=== PATIENT | female | born 1975 | race Caucasian/White ===

== ENCOUNTER 2017-08-05 11:15 | Emergency (ER) | payer BC, OTHER ==
[~2017-08-05] VITALS: Ht 162.6 cm; Wt 107.5 kg
[2017-08-05 11:20] VITALS: Ht 162.6 cm; Wt 107.5 kg
--- NOTE | 2017-08-05 12:12 | DIAGNOSTIC IMAGING REPORT ---
CHEST ONE VIEW PORTABLE HISTORY: 42 years-old Female dizziness acute dizziness COMPARISON: None available TECHNIQUE: Portable AP view of the chest FINDINGS: Cardiomediastinal and hilar silhouettes are within normal limits. No pneumothorax, pleural effusion, focal airspace consolidation or overt pulmonary edema. Bones of the chest appear grossly intact. IMPRESSION: No acute cardiopulmonary process. The above report was generated using voice recognition software. It may contain grammatical, syntax or spelling errors. Electronically signed by: Adin Brown M.D. 08/05/2017 12:10 PM Dictated Date/Time: 08/05/2017 12:10 PM
--- NOTE | 2017-08-05 12:32 | EMERGENCY ROOM VISIT NOTE ---
History First contact with patient: 11:24 Chief Complaint: DIZZY Stated Complaint: DIZZY Nursing Triage Summary: Triage Notes: Patient presents ambulatory to triage with spouse with c/o dizziness and tightness in her chest States yesterday while eating lunch with friends, she had a severe episode of dizziness and notes that her ear popped so she thought that it was fluid related Chest tightness began last night and radiates to left upper back Patient states she has had left upper back pain for the last several weeks History of Present Illness The patient is a 42 year old female who presents to the Emergency Room with complaints of dizziness. The patient reports that yesterday, she was eating lunch with her friends when she had a sudden onset of dizziness. She states that it felt like the room was spinning and the patient reports that she feels that if she was standing up, she would have fallen over. The patient reports she developed some pressure in her left ear, which then popped. Her symptoms then resolved. The dizziness lasted for less than 1 minute. The patient reports that since this morning, she has had some tightness in the left side of her chest, intermittent lightheadedness and tingling in both of her arms. She does report she has had some pressure and a pulling sensation in the left upper back for several weeks. She denies any chest pain, describing the sensation as a tightness and pressure. The patient reports some pressure in the back of her head. She denies palpitations, syncope, headache, neck pain, blurred vision, slurred speech, numbness, weakness, recent illness, fevers or shortness of breath. The patient has a history of gastric sleeve surgery. She was diabetic prior to the surgery, but this has resolved. She does have a history of hypertension and takes 12.5 mg or 5 times daily. She did take this medication this morning. She denies any cardiac history or family history of cardiac disease. She does not smoke. Denies hormone replacement, recent travel or history of blood clots. Review of Systems A complete 10 point review of systems was reviewed with the patient with pertinent positives and negatives as per history of present illness. All else were negative. Social History Smoking Status: Never Smoker Current/Historical Medications Scheduled Cetirizine (Zyrtec), 10 MG PO DAILY Fish Oil (Kendall-3), 1 CAP PO DAILY Fluoxetine (Prozac), 20 MG PO DAILY Hydrochlorothiazide (Hydrochlorothiazide), 12.5 MG PO DAILY Multivitamin (Multivitamin), 1 TAB PO DAILY Omeprazole (Prilosec), 1 CAP PO DAILY Physical Exam Vital Signs Date Time Temp Pulse Resp B/P (MAP) Pulse Ox O2 Delivery O2 Flow Rate FiO2 08/05/17 14:01 37.1 66 18 135/90 98 08/05/17 13:55 66 18 135/90 98 Room Air 08/05/17 13:31 128/91 08/05/17 13:15 67 18 98 Room Air 08/05/17 13:00 138/94 08/05/17 13:00 71 08/05/17 12:59 137/86 08/05/17 12:58 66 16 137/86 99 Room Air 08/05/17 12:58 147/92 08/05/17 12:56 72 16 131/85 99 Room Air 76 140/95 75 147/92 08/05/17 11:20 37.1 83 16 172/119 98 Room Air Physical Exam VITALS: Vitals are noted on the nurse's note and reviewed by myself. Vital signs stable. GENERAL: This is a 42-year-old female, in no acute distress, nondiaphoretic, well-developed well-nourished. SKIN: The skin was without rashes. HEAD: Normocephalic atraumatic. EARS: External auditory canals clear, tympanic membranes pearly chávez without erythema or effusion bilaterally. EYES: Pupils equal round and reactive to light and accommodation. Conjunctivae without injection, sclerae without icterus. Extraocular movements intact. MOUTH: Mucous membranes moist. Tonsils are not enlarged. Pharynx without erythema or exudate. NECK: Supple without nuchal rigidity. No lymphadenopathy. HEART: Regular rate and rhythm without murmurs gallops or rubs. LUNGS: Clear to auscultation bilaterally without wheezes, rales or rhonchi. MUSCULOSKELETAL: Strength 5/5 throughout. NEURO: Patient was alert and oriented to person place and time. Normal sensation to light and sharp touch. No focal neurological deficits. Normal finger to nose testing. Negative Romberg and pronator drift. Medical Decision & Procedures ER Provider Diagnostic Interpretation: HEAD WITHOUT CONTRAST (CT) FINDINGS: No acute intracranial hemorrhage, midline shift, intracranial mass, hydrocephalus, territorial ischemia or abnormal extra-axial collection. 1.1 cm round calcification is noted along the inner table of the skull adjacent to the right frontal lobe near the vertex, image 25 series 3. The calvarium is intact. The paranasal sinuses, mastoid air cells, and middle ear cavities are clear. IMPRESSION: No acute intracranial abnormality. CHEST ONE VIEW PORTABLE FINDINGS: Cardiomediastinal and hilar silhouettes are within normal limits. No pneumothorax, pleural effusion, focal airspace consolidation or overt pulmonary edema. Bones of the chest appear grossly intact. IMPRESSION: No acute cardiopulmonary process. Laboratory Results 08/05/17 12:15 Red Blood Count 4.87, Mean Corpuscular Volume 80.3, Mean Corpuscular Hemoglobin 27.5, Mean Corpuscular Hemoglobin Concent 34.3, Mean Platelet Volume 9.5, Neutrophils (%) (Auto) 66.1, Lymphocytes (%) (Auto) 27.3, Monocytes (%) (Auto) 5.4, Eosinophils (%) (Auto) 0.7, Basophils (%) (Auto) 0.4, Neutrophils # (Auto) 4.80, Lymphocytes # (Auto) 1.98, Monocytes # (Auto) 0.39, Eosinophils # (Auto) 0.05, Basophils # (Auto) 0.03 08/05/17 12:15 Test 08/05/17 12:15 08/05/17 12:59 White Blood Count 7.26 K/uL (4.8-10.8) Red Blood Count 4.87 M/uL (4.2-5.4) Hemoglobin 13.4 g/dL (12.0-16.0) Hematocrit 39.1 % (37-47) Mean Corpuscular Volume 80.3 fL (80-100) Mean Corpuscular Hemoglobin 27.5 pg (25-34) Mean Corpuscular Hemoglobin Concent 34.3 g/dl (32-36) Platelet Count 242 K/uL (130-400) Mean Platelet Volume 9.5 fL (7.4-10.4) Neutrophils (%) (Auto) 66.1 % Lymphocytes (%) (Auto) 27.3 % Monocytes (%) (Auto) 5.4 % Eosinophils (%) (Auto) 0.7 % Basophils (%) (Auto) 0.4 % Neutrophils # (Auto) 4.80 K/uL (1.4-6.5) Lymphocytes # (Auto) 1.98 K/uL (1.2-3.4) Monocytes # (Auto) 0.39 K/uL (0.11-0.59) Eosinophils # (Auto) 0.05 K/uL (0-0.5) Basophils # (Auto) 0.03 K/uL (0-0.2) RDW Standard Deviation 39.0 fL (36.4-46.3) RDW Coefficient of Variation 13.5 % (11.5-14.5) Immature Granulocyte % (Auto) 0.1 % Immature Granulocyte # (Auto) 0.01 K/uL (0.00-0.02) Anion Gap 8.0 mmol/L (3-11) Est Creatinine Clear Calc Drug Dose 152.8 ml/min Estimated GFR () 132.7 Estimated GFR (Non- 114.5 BUN/Creatinine Ratio 12.1 (10-20) Calcium Level 9.5 mg/dl (8.5-10.1) Magnesium Level 2.2 mg/dl (1.8-2.4) Total Bilirubin 0.4 mg/dl (0.2-1) Aspartate Amino Transf (AST/SGOT) 14 U/L (15-37) Alanine Aminotransferase (ALT/SGPT) 17 U/L (12-78) Alkaline Phosphatase 61 U/L (45-117) Troponin I < 0.015 ng/ml (0-0.045) Total Protein 7.7 gm/dl (6.4-8.2) Albumin 4.0 gm/dl (3.4-5.0) Globulin 3.7 gm/dl (2.5-4.0) Albumin/Globulin Ratio 1.1 (0.9-2) Thyroid Stimulating Hormone (TSH) 1.100 uIu/ml (0.300-4.500) Urine Color YELLOW Urine Appearance CLEAR (CLEAR) Urine pH 8.0 (4.5-7.5) Urine Specific [place] 1.011 (1.000-1.030) Urine Protein NEG (NEG) Urine Glucose (UA) NEG (NEG) Urine Ketones NEG (NEG) Urine Occult Blood NEG (NEG) Urine Nitrite NEG (NEG) Urine Bilirubin NEG (NEG) Urine Urobilinogen NEG (NEG) Urine Leukocyte Esterase NEG (NEG) ECG Rate (beats per minute): 74 Rhythm: normal sinus Findings: RBBB Comparison ECG Date: no prior available Medical Decision Differential diagnosis includes CVA, TIA, BPPV, anxiety, cardiac, thyroid disorder, electrolyte abnormality, among others. The patient is a 42-year-old female who presents today complaining of an episode of dizziness which occurred one day ago. The dizziness has resolved at this time. The patient now has some intermittent lightheadedness and chest tightness. She also has tingling of bilateral upper extremities. Patient's neurological exam is completely normal. Labs revealed no leukocytosis, anemia or concerning electrolyte abnormalities. Patient is in a euthyroid state. Urinalysis was not suggestive of infection. Urine was negative. EKG was interpreted by myself and shows a right bundle-branch block. There is no previous EKG for comparison. CT of the head was unremarkable. Chest x-ray was unremarkable. Patient was fairly hypertensive on initial presentation, however this normalized on recheck. I feel that the patient's current symptoms are likely secondary to anxiety regarding the episode of dizziness she had yesterday. She did admit that she was very nervous about these symptoms and was very relieved to know that her tests were normal. The dizziness may have been due to an inner ear issue, but this has resolved at this time and should not require treatment. The patient was advised of close follow-up with her PCP and return here if the symptoms worsen or if her dizziness returns. The patient's case was reviewed with Dr. Lagos, ED attending physician, who agreed with my assessment and treatment plan. Based on the patient's presentation and work up, I feel the patient is stable for outpatient treatment. The patient was educated to return to the emergency department for any worsening of their current condition or new/concerning symptoms. She will follow up with her PCP. Medication Reconcilliation Current Medication List: was personally reviewed by me Blood Pressure Screening Patient's blood pressure: Normal blood pressure Impression Primary Impression: Dizziness Departure Information Dispostion Home / Self-Care Condition GOOD Referrals Kimberlyn Garcia M.D. (PCP) Forms HOME CARE DOCUMENTATION FORM, IMPORTANT VISIT INFORMATION Patient Instructions My [facility] Additional Instructions Rest and plenty of fluids.. For pain control, you can use the following [id number] medicines (if >12 yo): - Regular strength (325mg/tab) Tylenol (acetaminophen) 2 tabs every 4-6 hours as needed. Do not exceed 12 tablets in a 24 hour period. Avoid taking more than 4 grams (4000 mg) of Tylenol per day. This includes any other sources of acetaminophen you may take on a regular basis. - Regular strength (200 mg/tab) Advil (ibuprofen) 1-2 tabs every 4-6 hours as needed. Do not exceed a dose of 3200 mg per day. You should schedule a follow-up appointment with your Primary Care Provider within 48 hours for further evaluation from today's Emergency Department visit. Return to the Emergency Department if your current symptoms worsen despite treatment course outlined above, or if you develop any of the following symptoms : worsening chest pain, associated jaw/arm pain, nausea, dizziness, shortness of breath, bloody cough, or fainting.
--- NOTE | 2017-08-05 12:32 | DIAGNOSTIC IMAGING REPORT ---
HEAD WITHOUT CONTRAST (CT) CLINICAL HISTORY: 42 years-old Female with dizziness, sudden onset. Acute dizziness TECHNIQUE: Multiple axial CT images of the head were obtained without contrast. A dose lowering technique was utilized adhering to the principles of ALARA. CT DOSE: 537.48 mGy.cm COMPARISON: None. FINDINGS: No acute intracranial hemorrhage, midline shift, intracranial mass, hydrocephalus, territorial ischemia or abnormal extra-axial collection. 1.1 cm round calcification is noted along the inner table of the skull adjacent to the right frontal lobe near the vertex, image 25 series 3. The calvarium is intact. The paranasal sinuses, mastoid air cells, and middle ear cavities are clear. IMPRESSION: No acute intracranial abnormality. The above report was generated using voice recognition software. It may contain grammatical, syntax or spelling errors. Electronically signed by: Adin Brown M.D. 08/05/2017 12:30 PM Dictated Date/Time: 08/05/2017 12:28 PM
[2017-08-05 12:36] LABS: BASO % 0.4 %; BASO ABS # 0.03 K/uL (0-0.2); COMPLETE YES; EOS % 0.7 %; HEMATOCRIT 39.1 % (37-47); IG% 0.1 %; LYMPH % 27.3 %; LYMPH ABS # 1.98 K/uL (1.2-3.4); MEAN CELL VOLUME 80.3 fL (80-100); MEAN CORPUSCULAR HEMOGLOBIN 27.5 pg (25-34); MEAN CORPUSCULAR HGB CONC 34.3 g/dl (32-36); MEAN PLATELET VOLUME 9.5 fL (7.4-10.4); MONO % 5.4 %; NEUT % 66.1 %; PLATELET COUNT 242 K/uL (130-400); RED BLOOD COUNT 4.87 M/uL (4.2-5.4); WHITE BLOOD COUNT 7.26 K/uL (4.8-10.8)
[2017-08-05 12:53] LABS: BLOOD UREA NITROGEN 7 mg/dl (7-18); BUN/CREATININE RATIO 12.1 (10-20); CALCIUM 9.5 mg/dl (8.5-10.1); CARBON DIOXIDE 26 mmol/L (21-32); CHLORIDE 103 mmol/L (98-107); CREATININE 0.58 mg/dl (0.60-1.20); GLUCOSE 159 mg/dl (70-99); MAGNESIUM 2.2 mg/dl (1.8-2.4); POTASSIUM 3.6 mmol/L (3.5-5.1); SODIUM 137 mmol/L (136-145)
[2017-08-05 13:03] LABS: ALB/GLOB RATIO 1.1 (0.9-2); ALKALINE PHOSPHATASE 61 U/L (45-117); ALT/SGPT 17 U/L (12-78); AST/SGOT 14 U/L (15-37)
[2017-08-05 13:18] LABS: URINE APPEARANCE CLEAR (CLEAR); URINE BILIRUBIN NEG (NEG); URINE COLOR YELLOW; URINE NITRITE NEG (NEG); URINE SPECIFIC GRAVITY 1.011 (1.000-1.030); UROBILINOGEN NEG (NEG); ZZUR CULT IF INDIC CLEAN CATCH NO
[2017-08-05] MEDS ORDERED: CETI10TA84 PO (13:20)
[2017-08-05] MEDS ORDERED: FLUO20CA35 PO (13:20)
[2017-08-05] MEDS ORDERED: HYDR12.55 PO (13:20)
[2017-08-05] MEDS ORDERED: OMEG10007 PO (13:20)
[2017-08-05] MEDS ORDERED: PRLSR20 PO (13:20)
[2017-08-05] MEDS ORDERED: MULT-506 PO (13:20)
[2017-08-05 13:25] LABS: MANUAL MICROSCOPIC REQUIRED? NO; REVIEW REQ? NO
[2017-08-05 14:01] VITALS: BP 135/90; PULSE 66; TEMP 37.1; O2SAT 98
== END 2017-08-05 14:03 | disposition home or self-care (01) ==
LOC: C.EDB 11:18 → C.EDA 14:03
DX: R42 Dizziness and giddiness (principal); I45.10 Unspecified right bundle-branch block; Z79.899 Other long term (current) drug therapy

== ENCOUNTER → 2017-09-02 | Outpatient (CLI) | payer OTHER ==
[~2017-09-02] MED LIST: CETI10TA84 PO; FLUO20CA35 PO; HYDR12.55 PO; MULT-506 PO; OMEG10007 PO; PRLSR20 PO
--- NOTE | 2017-09-02 14:42 | DIAGNOSTIC IMAGING REPORT ---
C-SPINE ROUTINE 4 OR 5 VIEWS CLINICAL HISTORY: ANESTHESIA OF SKIN COMPARISON STUDY: No previous studies for comparison. FINDINGS: Alignment of the cervical spine is anatomic. Vertebral body heights are maintained. There is no fracture or osseous lesion. There is minimal disc space narrowing at C5-C6. There is minimal multilevel bony neural foraminal narrowing. IMPRESSION: 1. No cervical spine fracture or subluxation. 2. Mild multilevel degenerative disc disease and facet arthrosis. Electronically signed by: Jose Lowery M.D. 09/02/2017 2:41 PM Dictated Date/Time: 09/02/2017 2:40 PM
== END | disposition home or self-care (01) ==
LOC: C.RAD1850 14:06
PROVIDERS: ATTEND Family Medicine
DX: R20.0 Anesthesia of skin (principal)

== ENCOUNTER → 2017-12-15 | Outpatient (CLI) | payer OTHER ==
--- NOTE | 2017-12-15 06:54 | DIAGNOSTIC IMAGING REPORT ---
FUSION CT SINUSES W/O CLINICAL HISTORY: J32.9 Chronic sinusitisPATIENT HAS HAD 3 COURSES OF ANTIBIOTICS COMPARISON STUDY: No previous studies for comparison. FINDINGS: There is an 11 mm right frontal canal stenosis versus calcified meningioma. There is a 19 mm right maxilla sinus retention cyst. There is minimal left maxilla sinus mucosal thickening. The mastoid air cells are clear. Middle ear cavities are well aerated. The sphenoid ethmoid and frontal sinuses are clear. The ostiomeatal units are patent bilaterally. The right ethmoid notches is protected. The left ethmoid notches are unprotected. The right olfactory groove measures 6 mm in depth. The left olfactory groove measures 8 mm in depth. The frontoethmoidal recesses are patent IMPRESSION: 1. No evidence of acute sinusitis 2. Minimal left maxillary sinus mucosal thickening. Right maxilla sinus retention cyst 3. The ostiomeatal units are patent bilaterally Electronically signed by: Selvin Haddad M.D. 12/15/2017 6:53 AM Dictated Date/Time: 12/15/2017 6:49 AM
== END | disposition home or self-care (01) ==
LOC: C.CTS 06:33
PROVIDERS: ATTEND Physician Assistant
DX: J32.9 Chronic sinusitis, unspecified (principal)

== ENCOUNTER → 2018-03-27 | Outpatient (CLI) | payer OTHER ==
--- NOTE | 2018-03-30 15:10 | MAMMOGRAPHY REPORT ---
BILATERAL DIGITAL SCREENING MAMMOGRAM TOMOSYNTHESIS WITH CAD: 03/27/2018 CLINICAL HISTORY: Routine screening. Patient has no complaints. TECHNIQUE: The study was acquired using full field digital technology and interpreted from soft copy. Breast tomosynthesis in addition to standard 2D mammography was performed. Current study was also ev aluated with a Computer Aided Detection (CAD) system. COMPARISON: Comparison is made to exam dated: 03/29/2016 mammogram - [facility] [address]. Al so outside prior mammograms dated 05/22/2011. BREAST COMPOSITION: There are scattered areas of fibroglandular density in both breasts. FINDINGS: No suspicious masses, calcifications, or areas of architectural distortion are noted in either breast . There has been no significant interval change compared to prior exams. IMPRESSION: ACR BI-RADS CATEGORY 1: NEGATIVE There is no mammographic evidence of malignancy. A 1 year screening mammogram is recommended.( [id number]) The patient will receive written notification of the results. Some breast cancers are not detected with mammography. A negative mammographic report should not marge y biopsy if a clinically suggestive mass is present. Fadia Kwon M.D. ah/:03/27/2018 15:01:01 [address] Attendant: RT Wilfrid(R)(M), [facility] [address] letter sent: Normal 1/2 BI-RADS Code: ACR BI-RADS Category 1: Negative
== END | disposition home or self-care (01) ==
LOC: C.MAMM 13:15
PROVIDERS: ATTEND Family Medicine
DX: Z12.31 Encounter for screening mammogram for malignant neoplasm of breast (principal)

== ENCOUNTER 2024-09-11 20:06 | Inpatient (IN) ==
--- OUTSIDE RECORDS SUMMARY | 2024-09-11 20:12 | External Medical Summary | Continuity of Care Document ---
Author Name Unknown Organization [facility] [id number] [place] [phone] Care Team Providers Care Bolt Maker Name Role Phone Sumeet Daniels Primary Care Physician [phone] Encounter [facility] [id number] Date(s): 06/15/24 - 06/15/24 [facility] [address] [facility] [address] [place] [address] [phone] Encounter Diagnosis DM (diabetes mellitus), type 2(Discharge Diagnosis) - 06/15/24 Body mass index [BMI] 34.0-34.9, adult(Discharge Diagnosis) - 06/15/24 Anxiety(Discharge Diagnosis) - 06/15/24 Hyperlipidemia(Discharge Diagnosis) - 06/15/24 Multiple sclerosis(Discharge Diagnosis) - 06/15/24 Discharge Disposition: Home or Self Care Attending Physician: MD Daniels Christopher Allergies, Adverse Reactions, Alerts Substance Criticality Severity Reaction Reaction Severity Status Copaxone Unable to assess criticality Severe Skin Necrosis Active Assessment and Plan Extracted from: Title:DM f/u Author:DO Thorne Sophia El izabeth Date:06/15/24 1.DM (diabetes mellitus), type 2 - chronic, not at goal - goal: A1c <7 with least amt of meds possible - will increase metformin to 500 mg in AM, 1000mg in PM; goal to d/c glipizide when able - continue ozempic 2 mgweekly, glipizide 5 mg daily - recheck A1c in 3 mths along withCMP, UCAR, and lipid panel - f/u in 3 mths 2.Anxiety - chronic, at goal - goal: reduce symptoms - continue prozac 60mg until at least Sep 2024 3.Multiple sclerosis - chronic, not at goal - goal: monitoring, prevent progression - pt continues to follow with neuro at [facility] - pt will have brain MRI in Aug; if new active lesion, will have to change her current regimen - encouraged continued f/u with neuro Immunizations Given and Recorded Vaccine Date Status Refusal Reason SARS COVID Vaccine Unspecified 05/23/24 Recorded SARS COVID Vaccine Unspecified 05/23/23 Recorded influenza virus vaccine, inactivated 05/23/24 Prince rded influenza virus vaccine, inactivated 05/23/23 Prince rded influenza virus vaccine, inactivated 05/14/22 Prince rded influenza virus vaccine, inactivated 05/11/20 Prince rded influenza virus vaccine, inactivated 05/25/19 Prince rded influenza virus vaccine, inactivated 05/25/18 Prince rded tetanus/diphtheria/pertuss, acel (Tdap) 12/18/22 G iven tetanus/diphtheria/pertuss, acel (Tdap) 11/04/10 R ecorded SARS-CoV-2 mRNA (Pfizer 12+) bivalent 05/24/22 Rec orded pneumococcal 20-valent conjugate vaccine 05/16/22 Given SARS-CoV-2 (COVID-19) mRNA BNT-162b2 vax 1 06/01/21 Recorded SARS-CoV-2 (COVID-19) mRNA BNT-162b2 vax 10/18/20 Recorded SARS-CoV-2 (COVID-19) mRNA BNT-162b2 vax 09/27/20 Recorded 1Result Comment: Booster; Medications atorvastatin 40 mg oral tablet Start: 02/24/24 6:57:00 PM EDT, See Instructions, Disp# 90 tab, Refills: 3, TAKE 1 TABLET AT BEDTIME,Note to Pharmacy: please use policy #[id number] per pt request, Pharmacy: [facility] Start Date: 02/24/24 Status: Ordered Aubagio 14 mg oral tablet Start: 05/22/21 1:55:00 PM EDT, 1 tab, PO, Daily Start Date: 05/22/21 Status: Ordered baclofen 20 mg oral tablet TAKE 1 TABLET BY MOUTH EVERY 12 HOURS Start Date: 09/27/20 Status: Ordered Fiber Tabs Start: 04/20/24 7:58:00 AM EDT, 2 tab, qhs, Fiber ONE Start Date: 04/20/24 Status: Ordered FLUoxetine 20 mg oral capsule Start: 04/01/24 10:34:00 AM EDT, 1 cap, PO, Daily, Disp# 90 cap, Refills: 3, Take with 40mg capsule, Pharmacy: [facility]/pharmacy #[id number] Start Date: 04/01/24 Status: Ordered FLUoxetine 40 mg oral capsule Start: 06/09/24 9:52:00 AM EDT, See Instructions, Disp# 90 cap, Refills: 3, TAKE 1 CAPSULE DAILY, Note to Pharmacy: please use policy #[id number] per pt request, Pharmacy: [facility] Start Date: 06/09/24 Status: Ordered gabapentin 100 mg oral capsule Start: 11/22/21 7:48:00 AM EDT, 1 cap, PO, bid Start Date: 11/22/21 Status: Ordered GlipiZIDE XL 5 mg oral tablet, extended release Start: 06/09/24 9:52:00 AM EDT, 1 tab, PO, Daily, Disp# 90 tab, Refills: 3, Note to Pharmacy: please cancel IR script, Pharmacy: [facility] Start Date: 06/09/24 Stop Date: 06/04/25 Status: Ordered hydroCHLOROthiazide 25 mg oral tablet Start: 02/24/24 6:57:00 PM EDT, See Instructions, Disp# 90 tab, Refills: 3, TAKE 1 TABLET DAILY, Noteto Pharmacy: please use policy #[id number] per pt request, Pharmacy: [facility] Start Date: 02/24/24 Status: Ordered losartan 25 mg oral tablet Start: 09/18/23 9:53:00 PM EST, See Instructions, Disp# 45 tab, Refills: 3, TAKE 1/2 TABLET (=12.5MG) DAILY, Note to Pharmacy: please use policy #[id number] per pt request, Pharmacy: [facility]/pharmacy#[id number] Start Date: 09/18/23 Status: Ordered metFORMIN 1000 mg oral tablet Start: 06/15/24 9:02:00 AM EDT, 1 tab, PO, qPM, Disp# 30 tab, Refills: 3, Take 1 tablet in the evenings, Pharmacy: [facility]/pharmacy #[id number] Start Date: 06/15/24 Status: Ordered metFORMIN 500 mg oral tablet Start: 06/09/24 9:52:00 AM EDT, 1 tab, PO, bid, Disp# 180 tab, Refills: 3, Pharmacy: [facility] Start Date: 06/09/24 Status: Ordered multivitamin Start: 12/15/18 7:49:00 AM EDT, 1 tab, PO, Daily Start Date: 12/15/18 Status: Ordered nortriptyline 25 mg oral capsule TAKE 1 CAPSULE BY MOUTH EVERYDAY AT BEDTIME Start Date: 02/21/22 Status: Ordered omeprazole 20 mg oral delayed release capsule Start: 02/24/24 6:57:00 PM EDT, See Instructions, Disp# 90 cap, Refills: 3, TAKE 1 CAPSULE DAILY, Note to Pharmacy: please use policy #[id number] per pt request, Pharmacy: [facility] Start Date: 02/24/24 Status: Ordered One Touch Delica Plus (33G) Lancets Start: 02/16/24 1:29:00 PM EDT, See Instructions, Disp# 100 each, check blood glucose 3x per day andas needed for concerns of hypo or hyperglycemia, Pharmacy: [facility]/pharmacy #[id number] Start Date: 02/16/24 Status: Ordered One Touch Verio Flex Glucose Monitor Start: 02/16/24 1:29:00 PM EDT, See Instructions, Disp# 1 each, Use daily for blood sugar monitoring, Note to Pharmacy: Dispense as written, Pharmacy: [facility]/pharmacy #[id number] Start Date: 02/16/24 Status: Ordered One Touch Verio Test Strips Start: 06/15/24 2:00:00 PM EDT, See Instructions, Disp# 100 each, Refills: 3, check blood glucose 3x per day and as needed for concerns of hypo or hyperglycemia, Pharmacy: [facility]/pharmacy #[id number] Start Date: 06/15/24 Status: Ordered Ozempic (2 mg dose) 8 mg/3 mL subQ pen Start: 06/09/24 9:52:00 AM EDT, 2 mg =, subQ, q7days, Disp# 3 mL, Refills: 5, Note to Pharmacy: increase from 1 mg, Pharmacy: [facility] Start Date: 06/09/24 Status: Ordered Vitamin D3 Start: 04/14/19 3:47:00 PM EDT, 2,000 Int_Unit =, Daily, two tabs daily Start Date: 04/14/19 Status: Ordered Zofran ODT 4 mg oral tablet, disintegrating Start: 05/20/23 12:53:00 PM EDT, 1 tab, PO, q8h, Disp# 20 tab, Refills: 0, PRN: as needed for nausea/vomiting, Pharmacy: [facility]/pharmacy #[id number] Start Date: 05/20/23 Status: Ordered ZyrTEC Start: 03/05/16 2:09:00 PM EDT, 10 mg =, PO, Daily Start Date: 03/05/16 Status: Ordered Mental Status 06/15/24 Barriers to Learning one year None evide nt Mandatory Health Literacy Documentation Yes Health Literacy Communication Barriers N ever Primary Language Tajik Problem List Condition Confirmation Course Effective Dates Status H ealth Status Informant Anxiety Confirmed Active Carpal tunnel syndrome Confirmed Active Occipital neuralgia Confirmed Active GERD (gastroesophageal reflux disease) Confirmed Active Glaucoma Confirmed Active Hyperlipidemia Confirmed Active Hyperlipidemia Confirmed Active Hypertension Confirmed Active Urinary frequency 1 Confirmed Active Migraine Confirmed Active Multiple sclerosis Confirmed Active Myofascial neck pain Confirmed Active Wrist pain, right Confirmed Active Plantar fasciitis, left Confirmed Active Sleep apnea 2 Confirmed Active Tear of medial meniscus of left knee Confirmed Active DM (diabetes mellitus), type 2 Confirmed Active 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, had to be on cpap but not after weight loss from gastric sleeve surgery Diagnosis Diagnosis Type Effective Dates Health Status Clinical Service Informant DM (diabetes mellitus), type 2 Discharge Diagnosis 06/15/24 Non-Specified Body mass index [BMI] 34.0-34.9, adult Discharge Diagnosis 06/15/24 Non-Specified Anxiety Discharge Diagnosis 06/15/24 Non-Specified Hyperlipidemia Discharge Diagnosis 06/15/24 Non-Specified Multiple sclerosis Discharge Diagnosis 06/15/24 Non-Specified Procedures Procedure Date Related Diagnosis Body Site Status Shave biopsy and cauterization of skin 05/18/24 Completed Hysterectomy 12/2023 Completed Colonoscopy 1 09/11/22 Completed Ultrasound scan of pelvis 2 07/12/22 Completed Shave biopsy and cauterization of skin 04/23/22 Completed Diagnostic mammogram 3 03/18/22 Co mpleted X-ray of right knee 4 11/22/21 Com pleted Mammogram 5 03/08/21 Completed MRA head 6 03/06/21 Completed Mammogram 7 08/09/20 Completed Mammogram 8 03/08/20 Completed Biopsy of R breast 9 02/16/20 Comp leted Diagnostic mammogram 10 02/15/[address] of chest w/o contrast 11 06/01/19 Completed Spinal tap 05/2019 Completed Mammogram 12 04/20/19 Completed CXR - Chest X-ray 13 12/11/18 Comp leted MRI of brain with and withou t contrast 14 12/11/18 Completed MRI of cervical spine with & without 15 12/11/18 Completed Diabetic retinal eye exam 16 09/10/18 Completed Mammogram 17 03/27/[address] of sinuses 18 12/15/17 Complete d Cervical spine X-ray 19 09/02/17 C ompleted Chest X-ray 20 08/05/[address] of head 21 08/05/17 Completed Electrodesiccation with curettage 22 03/25/17 Completed MRI of left knee 23 06/25/16 Compl eted Mammogram 24 03/29/16 Completed LAP SLEEVE GASTRECTOMY 2011 Co mpleted Ablation 2010 Completed section 2010 Complete d Tubal ligation 2010 Completed Laser surgery 2005 Complete d section 2002 Complete d Cholecystectomy 2002 Completed Colonoscopy 1995 Completed Ablation Completed delivery Comp leted gall bladder Completed Gastric 30 Completed Kidney stone 31 Completed Tongue Completed Tonsillectomy Completed 1COLO to TI normal. repeat colo 10 years. 2impression: 1. Mildenlarged and heterogeneous uterus. A 3.8cm slightly enchogenic mass lesion in the anterior fundal region is pathologically indeterminate but typical for a fribroid. This abuts the endometrium. 2. The region is normal in thickness measuring up to 0.5cm 3. The ovaries are normal as visualized. No adhexal lesion is seen 3ACR BI-RADS CATEGORY 2: BENIGN, ULTRASOUND ACR BI-RADS CATEGORY 2: BENIGN 1. Stable sonographic size and visual appearance of a benign-appearing 8.6 mm mass in the 6:00 to 7:00 left breast, 3 cm from the nipple, that is unchanged dating back to at least February 2020, therefore considered benign given long-term stability. No further close sonographic follow-up is needed at this time. 2. Also stable bilateral mammograms, without mammographic evidence of malignancy. 3. Recommend return to routine screening mammogram schedule, next due February 2023. 41. No fracture or dislocation within the right knee or right lower leg 2. Mild tricompartmental osteoarthritis within the right knee 3. Trace right knee effusion 5IMPRESSION: ACR-BI-RADS CATEGORY 3: PROBABLY BENIGN, ULTRASOUND ACR-BI-RADS CATEGORY 3: PROBABLY BENIGN Hypoechoic circumscribed benign-appearing 8 mm mass in the left 7:00 breast is stable dating back to the February 2020 ultrasound exam and is probably benign and may represent a fibroadenoma. Recommend bilateral diagnostic tomosynthesis mammograms and repeat targeted ultrasound of the left breast in 12months to confirm 2 years of stability of the left breast mass and for routine mammography of the right breast. 6Impression: 1. Stable white matter lesions in the brain without new lesions. 2. Stable possible lesions in the thoracic spinal cord at the T9 level, otherwise no definte cord lesions. 7ACR RADS CAT 3 Probably benign Stable visual appearance and generally stable sonographic size of a benign appearing parallel cucumscribed hypoechoic soild appearing mass in the 7:00 left breast on targeted US. Another 6 month fup left breast US is recommended to ensure longer stability. Annual bilateral mammography will aslo be due at that time. 8Impression: ACR-BI-RADS CATEGORY 3: Probably benign, ultrasound ACR BI- RADS CATEGORY 3 1. Stable mammographic appearance of the left breast. No new suspicious mammographic abnormalitliesidentified. 2. No targeted sonographic evidence of malignancy in the left breast or axilla. Incidentally identified benign- appearing 9.9 mm mass in the left 7:00 axis, 3 cm from the nipple, most likely represents a fibroadenoma. However, a shrt interval follow-up targeted left breast ultrasound is recommendedto ensure stability in 6 months. 3. The patient will be due for annual bilateral mammography in January 2021 and can remain diagnostic for that appointment given the patient will be due for anoter follow-up left breast ultrasound at that time. 9Status post right breast ultrasound-guided core biopsy of an indeterminate 5 mm hypoechoic mass in the 9:00 right breat with ribbon-shaped biopsy marker placed at the site. 10Right breast ultrasound-guided core biopsy is recommended for an indeterminate 5 mm mass in the 9:00 axis, 3 cm from the nipple in an area of pain reported by the patient. This lesion may be contributing to the patient's pain although the area she describes encompasses a larger portion of the breast than this small lesion. 11Impression: 1. No acute intrathoracic abnormality. 2. Circumscribed lobular solid pulmonary nodule of the basal right lower lobe measuring 1.3 x 0.9 cm is unchanged from 04/13/2019 and demonstrates central macroscopic fat attenuation suggestive of a pulmonary hamartoma. 3. Trace right pleural effusion with unchanged pleural-based calcification of the right lung base. 12Impression: ACR BI RADS CATEGORY 2: benign There is no mammographic evidence of malignancy. A 1 year screening mammogram is recommended. (04/20/2020) the patient will receive written notification of the results. 13Negative chest. 141. No evidence of acute or subacute infarction 2. Bilateral foci of abnormal T2 and FLAIR signal within the white matter, as well as a focus of increased signal within the left varsha. The findings are not typical for small vessel disease and raisethe possibility of demyelinating process, including but no tlimited to multiple sclerosis or Lyme disease. Clinical correlation and f/u is advocated. A lumbar puncture might be of benefit in f/u to narrow the differential. 151. Normal cervical cord signal and caliber. 2. T2 hyperintense focus within the varsha which is better depicted on the MRI of the brain. Please see that the report for further description. 3. Central disc protrusion at C5-C6 results in mild narrowing of the central canal. Mild to moderate bilateral neural foraminal narrowing at this level. 16Biomicroscopy reveals no iris neovasularization. Intraocular pressures were 21mmHg OD and 21mmHg OS. Dilated fundus exam was unremarkable. Repeat in one year. 17There is no mammographic evidence of malignancy. A one year screening is recommended. 18No evidence of acute sinusitis minimal left maxillary sinus mucosal thickening, right maxilla sinus retention cyst the ostiomeatal units are patent bilaterally 19no fracture or subluxation. Mild multilevel degenerative disc disease and facet arthrodid. 20Impression: No acute cardiopulmonary process. 21Impression: No acute intracranial abnormality 22right upper back 231. There is an oblique tear involving the body and posterior horn of the medial meniscus 2. Small joint effusion 3. Degenerative geode formation with mild surrounding marrow edema is identified posterior tibial plateau 24Impression no mammographic evidence of malignancy. A 1 year screening mammogram is recommended 25uterine 26tongue 27for evaluation of diarrhea w/ FHx of Crohn's 28uterine 29x2 30vertical sleeve gastrectomy - lost 100lb but has gained 25lbs back. 31removal Vital Signs Most recent to oldest [Reference Range]: 1 Height 167 cm (06/15/24 8:24 AM) Patient Weight 97.1 kg (06/15/24 8:24 AM) Body Mass Index 34.82 kg/m2 (06/15/24 8:24 AM) Temperature [36.5-37.9 DegC] 36.6 DegC (06/15/24 8:24 AM) Heart Rate 101 bpm (06/15/24 8:24 AM) Respiratory Rate 18 br/min (06/15/24 8:24 AM) Blood Pressure 118/86mmHg (06/15/24 8:24 AM) Cuff Pulse Pressure 32 mmHg (06/15/24 8:24 AM) Social History Social History Type Response Smoking Status Never smoked cigaret jose Sex Sex Representation Female (finding) FCM Outpt Note * MD Daniels Christopher: MODIFY MD Daniels Christopher: MODIFY Event Display: FCM Outpt Note Authored Date: [id number] Chief Complaint 4 month f/u- go over labs History of Present Illness Pt is a 49 yo female with PMH of DM, anxiety, HTN, HLD, and MS presenting for a follow up. DM - pt currently on ozempic2 mg, glipizide 5 mg, metformin IR 500mg BID - last diabetic eye exam: 6 mths ago - last urine test: Aug 2023 - last A1c: 7.4% (05/2024) - last lipids: Aug 2023 - last Cr: Aug 2023 - pt notes she wason steroids forasinusinfectionand herBS were [id number] 2 weeks Depression - doing well on prozac 60 mgdaily Pt notes she is under a lot of stress with starting a new job in Jul. She will be living in [facility] 3 days per week and 4 days per week here. 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 Pt notes she has an upcoming brain MRI for her MS. If she has anothernew lesion, she may need to change her regimen. Review of Systems As per HPI Physical Exam Vitals & Measurements T:36.6C HR:101(Monitored) RR:18 BP:118/86 SpO2:98% HT:167cm WT:97.100kg(Dosing) WT:97.1kg BMI:34.82 PHQ2 Data(Data Documented on:06/15/2024 08:21) Emotional health assessment NEGATIVE PHQ-9 Data(Data Documented on:06/15/2024 08:22) PHQ-9 Severity Score:3 Thoughts that you would be better off or of hurting yourself in some way?Not at All Depression Risk:Not Elevated General Anxiety Disorder Screening: ALFONSO-7 Score:4 General:well appearing, alert and oriented,no acute distress Cardiovascular: clinically well perfused Respiratory: respirations are non-labored Psych: Mood and affect congruent. Speech of normal pace and content. Assessment/Plan 1.DM (diabetes mellitus), type 2 - chronic, not at goal - goal: A1c <7 with least amt of meds possible - will increase metformin to 500 mg in AM, 1000mg in PM; goal to d/c glipizide when able - continue ozempic 2 mgweekly, glipizide 5 mg daily - recheck A1c in 3 mths along withCMP, UCAR, and lipid panel - f/u in 3 mths 2.Anxiety - chronic, at goal - goal: reduce symptoms - continue prozac 60mg until at least Sep 2024 3.Multiple sclerosis - chronic, not at goal - goal: monitoring, prevent progression - pt continues to follow with neuro at [facility] - pt will have brain MRI in Aug; if new active lesion, will have to change her current regimen - encouraged continued f/u with neuro Attestation Pt seen and examined in concert with Dr. Thorne, agree with history and physical as documented above. Plan reviewed in detail. Any corrections or additions are noted here - ongoing follow up for chronic illness with DMII not yet at goal. Agree w/ recheck and likely d/c glipizide if < 7%. Problem List/Past Medical History Ongoing Anxiety Carpal tunnel syndrome DM (diabetes mellitus), type 2 GERD (gastroesophageal reflux disease) Glaucoma Hyperlipidemia Hyperlipidemia Hypertension Migraine Multiple sclerosis Myofascial neck pain Occipital neuralgia Plantar fasciitis, left Sleep apnea Tear of medial meniscus of left knee Urinary frequency Wrist pain, right Resolved Abnormal brain MRI Abnormal MRI Allergic rhinitis Gallbladder disease Left knee pain Myofascial pain Procedure/Surgical History Shave biopsy and cauterization of skin| Service Date: 05/18/2024Hysterectomy| Service Date: olonoscopy| Service Date: 09/11/2022Ultrasound scan of pelvis| Service Date: 07/12/2022have biopsy and cauterization of skin| Service Date: 2Diagnostic mammogram| Service Date: 03/18/2022X-ray of right knee| Service Date: 11/22/2021Mammogram| Service Date: 03/08/2021MRA head| Service Date: 03/06/2021Mammogram| Service Date: 08/09/2020Mammogram| Service Date: 03/08/2020Biopsy of R breast| Service Date: 2020Diagnostic mammogram| Service Date:02/15/2020CT of chest w/o contrast| Service Date: 06/01/2019Spinal tap| Service Date: 05/2019 Mammogram| Service Date: 04/20/2019 MRI of cervical spine with & without| Service Date: 12/11/2018MRI of brain with and without contrast| Service Date: 12/11/2018CXR - Chest X-ray| Service Date: 12/11/2018Diabetic retinal eye exam| Service Date: 09/10/2018Mammogram| Service Date: 03/27/2018CT of sinuses| Service Date: 12/15/2017Cervical spine X-ray| Service Date: 09/02/2017Chest X-ray| Service Date: 08/05/2017CT of head| Service Date: 08/05/2017Electrodesiccation with curettage| Service Date: 03/25/2017MRI of left knee| Service Date: 06/25/2016Mammogram| Service Date: 03/29/2016LAP SLEEVE GASTRECTOMY| Service Date: 2011Tubal ligation| Service Date: blation| Service Date: 2010Cesarean section| Service Date: 2010Laser surgery| Service Date: 2005Cesarean section| Service Date: 2002Cholecystectomy| Service Date: 2002Colonoscopy| Service Date: 1995Tonguegall bladderAblationCesarean deliveryGastricTonsill ectomyKidney stone Medications atorvastatin(atorvastatin 40 mg oral tablet), See Instructions, 3 refills baclofen(baclofen 20 mg oral tablet) cetirizine(ZyrTEC), 10 mg, PO, Daily cholecalciferol(Vitamin D3), 2000 Int_Unit, Daily diabetes supplies(One Touch Verio Flex Glucose Monitor), See Instructions diabetes supplies(One Touch Verio Test Strips), See Instructions, 3 refills diabetes supplies(One Touch Delica Plus (33G) Lancets), See Instructions FLUoxetine(FLUoxetine 20 mg oral capsule), 20 mg= 1 cap, PO, Daily, 3 refills FLUoxetine(FLUoxetine 40 mg oral capsule), See Instructions, 3 refills gabapentin(gabapentin 100 mg oral capsule), 100 mg= 1 cap, PO, bid glipiZIDE(GlipiZIDE XL 5 mg oral tablet, extended release), 5 mg= 1 tab, PO, Daily, 3 refills hydroCHLOROthiazide(hydroCHLOROthiazide 25 mg oral tablet), See Instructions, 3 refills losartan(losartan 25 mg oral tablet), See Instructions, 3 refills metFORMIN(metFORMIN 1000 mg oral tablet), 1000 mg= 1 tab, PO, qPM, 3 refills metFORMIN(metFORMIN 500 mg oral tablet), 500 mg= 1 tab, PO, bid, 3 refills multivitamin, 1 tab, PO, Daily nortriptyline(nortriptyline 25 mg oral capsule) omeprazole(omeprazole 20 mg oral delayed release capsule), See Instructions, 3 refills ondansetron(Zofran ODT 4 mg oral tablet, disintegrating), 4 mg= 1 tab, PO, q8h, PRN polycarbophil(Fiber Tabs), 2 tab, qhs semaglutide(Ozempic (2 mg dose) 8 mg/3 mL subQ pen), 2 mg, subQ, q7days, 5 refills teriflunomide(Aubagio 14 mg oral tablet), 14 mg= 1 tab, PO, Daily Allergies Copaxone(Severe)Skin Necrosis Social History Smoking Status Never smoked cigarettes Alcohol - Denies Alcohol Use Employment/School Status:Employed Description:[employer] - fund raise - annual giving Exercise - Regular exercise Home/Environment Lives with:Spouse - Comments: Son has CIDP daughter 12 and son is 5. Substance Abuse - Denies Substance Abuse Tobacco - Denies Tobacco Use Family History Breast cancer: Mother. Diabetes mellitus type 2: Mother and Father. Hypertension: Mother and Father. Skin cancer: Father. Health Status Family Member(s) Immunizations Vaccine Date Status SARS COVID Vaccine Unspecified 05/23/2024 Recorded influenza virus vaccine, inactivated 05/23/2024 Recorded influenza virus vaccine, inactivated 05/23/2023 Recorded SARS COVID Vaccine Unspecified 05/23/2023 Recorded tetanus/diphtheria/pertuss, acel (Tdap) 12/18/2022 Given SARS-CoV-2 mRNA (Pfizer 12+) bivalent 05/24/2022 Recorded pneumococcal 20-valent conjugate vaccine 05/16/2022 Given influenza virus vaccine, inactivated 05/14/2022 Recorded SARS-CoV-2 (COVID-19) mRNA BNT-162b2 vax 06/01/2021 Recorded Comments : Booster; SARS-CoV-2 (COVID-19) mRNA BNT-162b2 vax 10/18/2020 Recorded SARS-CoV-2 (COVID-19) mRNA BNT-162b2 vax 09/27/2020 Recorded influenza virus vaccine, inactivated 05/11/2020 Recorded influenza virus vaccine, inactivated 05/25/2019 Recorded influenza virus vaccine, inactivated 05/25/2018 Recorded tetanus/diphtheria/pertuss, acel (Tdap) 11/04/2010 Recorded Recommendations Health Maintenance Pending(in the next year) Due Adult Social Determinants of Health Screening due06/15/24Unknown Frequency Hepatitis C Screening due06/15/24One-time only Shingles Vaccine due06/15/24One-time only Due In Future Adult Influenza Vaccine not due until02/21/25and every 1year Diabetes Management A1c not due until06/12/25and every 366day Satisfied(in the past 1 year) Satisfied Adult Influenza Vaccine on05/23/24.Satisfied by SLAVA Dalton Paula Body Mass Index on06/15/24.Satisfied by SLAVA Barber [place] Breast Cancer Screening on04/02/24.Satisfied by SLAVA Sultana Lynnae Depression Follow Up Plan on06/15/24.Satisfied by SLAVA [place] Diabetes Management A1c on06/11/24.Satisfied by Contributor_system, [email or web address] Diabetes Nephropathy Management on08/29/23.Satisfied by Contributor_system, [email or web address] Diabetic Eye Exam on10/10/23.Satisfied by SLAVA Sultana Lynnae Lipid Screening on08/29/23.Satisfied by Contributor_system, [email or web address] Electronic Signature on File Electronically Reviewed/Signed by: Sandy Thorne DO Author Signature Dt/Tm:06/15/2024 09:09 AM Resident Department of Family Medicine Electronically Reviewed/Signed by: Sumeet Daniels MD Cosigner Signature Dt/Tm: 06/17/2024 03:59PM Department of Family Medicine SES Patient Care team information Care Team Personnel Name: DO Grace Amanda Position: Resident Member Role: Lifetime Relationship Address: [address] [place] [address] [place] Name: Jaida Luevano Position: HIS Supervisor_P Member Role: HIS Lifetime Name: MD Daniels Christopher Position: Physician - Family Med Member Role: Primary Care Provider Address: [address] [facility] [address] [place] [address] [place] Name: Elham Medina Position: HIS Supervisor_P Member Role: HIS Lifetime Name: MD Mcduffie Juan Position: Physician - Family Med Member Role: Lifetime Relationship Address: [address] [place] [address] [place] Name: SUSHANT Banks Christina L Position: Physician - Podiatry Member Role: Lifetime Relationship Address: [address] [facility] [address] [place] [address] [place] Name: Erin Burgess Position: HIS Supervisor_P Member Role: HIS Lifetime Care Team Related Persons Name: RUDDY SALDIVAR Name: URBAN SALDIVAR Name: URBAN SALDIVAR Name: URBAN SALDIVAR Name: AGUEDA SALDIVAR"
--- OUTSIDE RECORDS SUMMARY | 2024-09-11 20:12 | External Medical Summary | Continuity of Care Document ---
Author Name Unknown Organization [facility] [address] [place], [place] [address] Address [address] [place] [id number] Care Team Providers Care Veterinarian Poultry Name Role Phone Sumeet Daniels Primary Care Physician [phone] Encounter [facility] [id number] Date(s): 06/11/24 - 06/11/24 [facility] [address] [facility] [address] [place] [address] Encounter Diagnosis Myofascial neck pain(Discharge Diagnosis) - 06/11/24 Discharge Disposition: Home or Self Care Attending Physician: MD Levar, Moses Romero Allergies, Adverse Reactions, Alerts Substance Criticality Severity Reaction Reaction Severity Status Copaxone Unable to assess criticality Severe Skin Necrosis Active Immunizations Given and Recorded Vaccine Date Status [...] AT BEDTIME,Note to Pharmacy: please use policy #[id number] per pt request, [facility]acy: [facility] Start Date: 02/24/24 Status: Ordered Aubagio 14 mg oral tablet Start: 05/22/21 1:55:00 PM EDT, 1 tab, PO, Daily Start Date: 05/22/21 Status: Ordered baclofen 20 mg oral tablet TAKE 1 TABLET BY MOUTH EVERY 12 HOURS Start Date: 09/27/20 Status: Ordered ferrous sulfate Start: 06/28/20 12:49:00 PM EST Start Date: 06/28/20 Status: Ordered Fiber Tabs Start: 04/20/24 7:58:00 AM EDT, 2 tab, qhs, Fiber ONE Start Date: 04/20/24 Status: Ordered FLUoxetine 20 mg oral capsule Start: 04/01/24 10:34:00 AM EDT, 1 cap, PO, Daily, Disp# 90 cap, Refills: 3, Take with 40mg capsule, Pharmacy: [facility]/pharmacy #[id number] Start Date: 04/01/24 Status: Ordered FLUoxetine 40 mg oral capsule Start: 06/09/24 9:52:00 AM EDT, See Instructions, Disp# 90 cap, Refills: 3, TAKE 1 CAPSULE DAILY, Note to Pharmacy: please use policy #[id number] per pt request, Pharmacy: [facility] Start Date: 06/09/24 Status: Ordered gabapentin 100 mg oral capsule Start: 11/22/21 7:48:00 AM EDT, 1 cap, PO, bid Start Date: 11/22/21 Status: Ordered GlipiZIDE XL 5 mg oral tablet, extended release Start: 06/09/24 9:52:00 AM EDT, 1 tab, PO, Daily, Disp# 90 tab, Refills: 3, Note to Pharmacy: please cancel IR script, Pharmacy: [facility] Start Date: 06/09/24 Stop Date: 06/04/25 Status: Ordered hydroCHLOROthiazide 25 mg oral tablet Start: 02/24/24 6:57:00 PM EDT, See Instructions, Disp# 90 tab, Refills: 3, TAKE 1 TABLET DAILY, [facility] Pharmacy: please use policy #[id number] per pt request, Pharmacy: [facility] Start Date: 02/24/24 Status: Ordered losartan 25 mg oral tablet Start: 09/18/23 9:53:00 PM EST, See Instructions, Disp# 45 tab, Refills: 3, TAKE 1/2 TABLET (=12.5MG) DAILY, Note to Pharmacy: please use policy #[id number] per pt request, Pharmacy: [facility]/pharmacy#[id number] Start Date: 09/18/23 Status: Ordered metFORMIN 500 mg oral tablet Start: 06/09/24 9:52:00 AM EDT, 1 tab, PO, bid, Disp# 180 tab, Refills: 3, Pharmacy: [facility] Start Date: 06/09/24 Status: Ordered [...] DAILY, Note to Pharmacy: please use policy #[id number] per pt request, Pharmacy: [facility] Start Date: 02/24/24 Status: Ordered One Touch Delica Plus (33G) Lancets Start: 02/16/24 1:29:00 PM EDT, See Instructions, Disp# 100 each, check blood glucose 3x per day andas needed for concerns of hypo or hyperglycemia, Pharmacy: [facility]/pharmacy #[id number] Start Date: 02/16/24 Status: Ordered One Touch Verio Flex Glucose Monitor Start: 02/16/24 1:29:00 PM EDT, See Instructions, Disp# 1 each, Use daily for blood sugar monitoring, Note to Pharmacy: Dispense as written, Pharmacy: [facility]acy [id number] Start Date: 02/16/24 Status: Ordered One Touch Verio Test Strips Start: 02/16/24 1:29:00 PM EDT, See Instructions, Disp# 100 each, Refills: 3, check blood glucose 3xper day and as needed for concerns of hypo or hyperglycemia, [id number] Start Date: 02/16/24 Status: Ordered Ozempic (1 mg dose) 4 mg/3 mL subQ pen Start: 01/30/24 3:27:00 PM EDT, 1 mg =, subQ, q7days, Disp# 3 mL, Refills: 2, Pharmacy: [facility]/pharmacy #[id number] Start Date: 01/30/24 Status: Ordered Ozempic (2 mg dose) 8 mg/3 mL subQ pen Start: 06/09/24 9:52:00 AM EDT, 2 mg =, subQ, q7days, Disp# 3 mL, Refills: 5, Note to Pharmacy: increase from 1 mg, Pharmacy: [facility] Start Date: 06/09/24 Status: Ordered Vitamin D3 Start: 04/14/19 3:47:00 PM EDT, 2,000 Int_Unit =, Daily, two tabs daily Start Date: 04/14/19 Status: Ordered Zofran ODT 4 mg oral tablet, disintegrating Start: 05/20/23 12:53:00 PM EDT, 1 tab, PO, q8h, Disp# 20 tab, Refills: 0, PRN: as needed for nausea/vomiting, [id number] Start Date: 05/20/23 Status: Ordered ZyrTEC Start: 03/05/16 2:09:00 PM EDT, 10 mg =, PO, Daily Start Date: 03/05/16 Status: Ordered Mental Status 06/11/24 Barriers to Learning one year None evide nt Mandatory Health Literacy Documentation Yes Health Literacy Communication Barriers N ever Primary Language Serbian Problem List Condition Confirmation Course Effective Dates Status H ealth Status Informant Anxiety Confirmed Active Nevus Confirmed Active Carpal tunnel syndrome Confirmed Active Occipital neuralgia Confirmed Active Depression Confirmed Active Depression Confirmed Active GERD (gastroesophageal reflux disease) Confirmed Active Glaucoma Confirmed Active Hyperlipidemia Confirmed Active Hyperlipidemia Confirmed Active Hypertension Confirmed Active Urinary frequency 1 Confirmed Active Migraine Confirmed Active Multiple sclerosis Confirmed Active Myofascial neck pain Confirmed Active Left sided numbness Confirmed Active Wrist pain, right Confirmed Active [...] Effective Dates Health Status Clinical Service Informant Myofascial neck pain Discharge Diagnosis 06/11/24 Procedures Procedure Date Related Diagnosis Body Site [...] 100lb but has gained 25lbs back. 31removal Social History Social History Type Response Smoking Status Never smoked cigaret jose Sex Sex Representation Female (finding) Ortho Outpt Note * MD Levar, Moses Romero: PERFORM Event Display: Ortho Outpt Note Authored Date: [id number] Name:DONALD RITCHIE Patient Number:[id number] :1975 Date of Service:06/11/2024 CHIEF COMPLAINT: Myofascial pain. HISTORY OF PRESENT ILLNESS: The patient is a 49 year-old female who returns today for trigger point injections. She reports the last set was very helpful up until the last 9 days. She is requesting trigger point injections today. MEDICATIONS: Atorvastatin, baclofen, Zyrtec, vitamin D3, ferrous sulfate, fluoxetine, gabapentin,hydrochlorothiazide, losartan, metformin. PHYSICAL EXAMINATION: Pleasant female, seated comfortably. She has taut bandsin the bilateralcervical paraspinal muscle. She also has tight bands bilaterally in the trapezius muscles and superior rhomboids. IMPRESSION: Myofascial pain with taut bands. RECOMMENDATIONS: The patient requested trigger point injections. Verbal consent was obtained. She was positively reidentified via name and via timeout for safety.Areas were pressure marked, cleansed with alcohol and confirmed with medicalpersonnel in the room. All injections were done with a 25-gauge 1-1/2-inch needle in6 separate muscles after negative aspiration. The areas were injected with 1 mL of 1% lidocaine in the bilateralcervical paraspinal muscles, bilateral superior rhomboid musclesand bilateral proximal trapezius muscles. Injections were well tolerated and she will follow up in 6 weeks' time. Electronic Signature on File Electronically Reviewed/Signed by: Moses Cristobal MD Author Signature Dt/Tm:06/11/2024 10:57 AM Pastoral Worker of Orthopaedics & Rehabilitation and Physical Medicine & Rehabilitation JOSE Patient Care team information Care Team Personnel Name: DO Grace Amanda Position: Resident Member Role: Lifetime Relationship Address: [address] [place] [address] [place] Name: Jaida Luevano Position: HIS Supervisor_P Member Role: HIS Lifetime Name: MD Daniels Christopher Position: Physician - Family Med Member Role: Primary Care Provider Address: [address] [place] [address] [place] Name: Elham Medina Position: HIS Supervisor_P Member Role: HIS Lifetime Name: MD Mcduffie Juan Position: Physician - Family Med Member Role: Lifetime Relationship Address: [address] [place] [address] Name: SUSHANT Banks Christina L Position: Physician - Podiatry Member Role: Lifetime Relationship Address: [address] [place] [address] [place] Name: Erin Burgess Position: HIS Supervisor_P Member Role: HIS Lifetime Care Team Related Persons Name: RUDDY SALDIVAR Name: URBAN SALDIVAR Name: URBAN SALDIVAR Name: URBAN SALDIVAR Name: AGUEDA SALDIVAR
--- OUTSIDE RECORDS SUMMARY | 2024-09-11 20:12 | External Medical Summary | Continuity of Care Document ---
Author Name Unknown Organization [facility] [id number] Address [address] [place] [id number] Care Team Providers Care Jeep Driver Name Role Phone Jeremiah Bobbymillaheidi Primary Care Physician [phone] Encounter [facility] [id number] Date(s): 04/29/24 - 04/29/24 [facility] 0 [facility] [address] [place] [address] Encounter Diagnosis Myofascial neck pain(Discharge Diagnosis) - 04/29/24 Discharge Disposition: Home or Self Care Attending Physician: MD Levar, Moses Romero Allergies, Adverse Reactions, Alerts Substance Criticality Severity Reaction Reaction Severity Status Copaxone Unable to assess criticality Severe Skin Necrosis Active Immunizations Given and Recorded Vaccine Date Status Refusal Reason influenza virus vaccine, inactivated 05/23/23 Prince rded influenza virus vaccine, inactivated 05/14/22 Prince rded influenza virus vaccine, inactivated 05/11/20 Prince rded influenza virus vaccine, inactivated 05/25/19 Prince rded influenza virus vaccine, inactivated 05/25/18 Prince rded SARS COVID Vaccine Unspecified 05/23/23 Recorded tetanus/diphtheria/pertuss, acel (Tdap) 12/18/22 G iven tetanus/diphtheria/pertuss, [...] AT BEDTIME,Note to Pharmacy: please use policy #[id number] per pt request, [facility]acy: [facility] [...] Refills: 3, Take with 40mg capsule, Pharmacy: [facility]/pharmacy #[id number] Start Date: 04/01/24 Status: Ordered FLUoxetine 40 mg oral capsule Start: 09/18/23 9:53:00 PM EST, See Instructions, Disp# 90 cap, Refills: 3, TAKE 1 CAPSULE DAILY, Note to Pharmacy: please use policy #[id number] per pt request, Pharmacy: [facility]/pharmacy #[id number] Start Date: 09/18/23 Status: Ordered gabapentin 100 mg oral capsule Start: 11/22/21 7:48:00 AM EDT, 1 cap, PO, bid Start Date: 11/22/21 Status: Ordered GlipiZIDE XL 5 mg oral tablet, extended release Start: 01/27/24 10:08:00 AM EDT, 1 tab, PO, Daily, Disp# 90 tab, Refills: 3, Note to Pharmacy: pleasecancel IR script, Pharmacy: [facility]/pharmacy #[id number] Start Date: 01/27/24 Stop Date: 01/21/25 Status: Ordered hydroCHLOROthiazide 25 mg oral tablet Start: 02/24/24 6:57:00 PM EDT, See Instructions, Disp# 90 tab, Refills: 3, TAKE 1 TABLET DAILY, Noteto Pharmacy: please use policy #[id number] per pt request, Pharmacy: [facility] Start Date: 02/24/24 Status: Ordered losartan 25 mg oral tablet Start: 09/18/23 9:53:00 PM EST, See Instructions, Disp# 45 tab, Refills: 3, TAKE 1/2 TABLET (=12.5MG) DAILY, Note to Pharmacy: please use policy #[id number] per pt request, Pharmacy: [facility]/pharmacy#1916 Start Date: 09/18/23 Status: Ordered metFORMIN 500 mg oral tablet Start: 01/06/24 3:51:00 PM EDT, 1 tab, PO, bid, Disp# 180 tab, Refills: 3, Pharmacy: [facility]/pharmacy #[id number] Start Date: 01/06/24 Status: Ordered multivitamin Start: 12/15/18 7:49:00 AM [...] DAILY, Note to Pharmacy: please use policy #[id number] per pt request, Pharmacy: [facility] Start Date: 02/24/24 Status: Ordered One Touch Delica Plus (33G) Lancets Start: 02/16/24 1:29:00 PM EDT, See Instructions, Disp# 100 each, check blood glucose 3x per day andas needed for concerns of hypo or hyperglycemia, Pharmacy: [facility]/pharmacy #[id number] Start Date: 02/16/24 Status: Ordered One Touch Verio Flex Glucose Monitor Start: 02/16/24 1:29:00 PM EDT, See Instructions, Disp# 1 each, Use daily for blood sugar monitoring, Note to Pharmacy: Dispense as written, Pharmacy: [facility]/pharmacy #1916 Start Date: 02/16/24 Status: Ordered One Touch Verio Test Strips Start: 02/16/24 1:29:00 PM EDT, See Instructions, Disp# 100 each, Refills: 3, check blood glucose 3xper day and as needed for concerns of hypo or hyperglycemia, [facility] Start Date: 02/16/24 Status: Ordered Ozempic (1 mg dose) 4 mg/3 mL subQ pen Start: 01/30/24 3:27:00 PM EDT, 1 mg =, subQ, q7days, Disp# 3 mL, Refills: 2, Pharmacy: [facility]/pharmacy #1916 Start Date: 01/30/24 Status: Ordered Ozempic (2 mg dose) 8 mg/3 mL subQ pen Start: 04/20/24 8:17:00 AM EDT, 2 mg =, subQ, q7days, Disp# 3 mL, Refills: 1, Note to Pharmacy: increase from 1 mg, [facility] Start Date: 04/20/24 Status: Ordered Vitamin D3 Start: 04/14/19 3:47:00 PM EDT, 2,000 Int_Unit =, Daily, two tabs daily Start Date: 04/14/19 Status: Ordered Zofran ODT 4 mg oral tablet, disintegrating Start: 05/20/23 12:53:00 PM EDT, 1 tab, PO, q8h, Disp# 20 tab, Refills: 0, PRN: as needed for nausea/vomiting, [facility] Start Date: 05/20/23 Status: Ordered ZyrTEC Start: 03/05/16 2:09:00 PM EDT, 10 mg =, PO, Daily Start Date: 03/05/16 Status: Ordered Mental Status 04/29/24 Barriers to Learning one year None evide nt Mandatory Health Literacy Documentation Yes Health Literacy Communication Barriers N ever Primary Language Burundian Problem List Condition Confirmation Course Effective Dates [...] Service Informant Myofascial neck pain Discharge Diagnosis 04/29/24 Procedures Procedure Date Related Diagnosis Body Site Status Colonoscopy 1 09/11/22 Completed Ultrasound scan of [...] Mammogram 24 03/29/16 Completed LAP SLEEVE GASTRECTOMY 2012 Co mpleted Ablation 2010 Completed section 2010 [...] Ortho Outpt Note * MD Levar, Moses G: PERFORM Event Display: Ortho Outpt Note Authored Date: [id number] Name:DONALD RITCHIE Patient Number:[id number] :1975 Date of Service:04/29/2024 CHIEF COMPLAINT: Myofascial pain. HISTORY OF PRESENT ILLNESS: The patient is a 49 year-old female who returns today for trigger point injections. She reports the last set was very helpful for her for5+ weeks. She is requesting trigger point injections today. [...] Reviewed/Signed by: Moses Cristobal MD Author Signature Dt/Tm:04/29/2024 10:34 AM Caustics Loader of Orthopaedics & Rehabilitation and Physical Medicine & Rehabilitation [facility] Patient Care team information Care Team Personnel Name: DO Grace Amanda Position: Resident Member Role: Lifetime Relationship Address: [address] [place] [address] [place] Name: Jaida Luevano Position: HIS Supervisor_P Member Role: HIS Lifetime Name: MD Daniels Christopher Position: Physician - Family Med Member Role: Primary Care Provider Address: [address] [place] [address] [place] Name: Elham Medina Position: HIS Supervisor_P Member Role: HIS Lifetime Name: MD Mcduffie Juan Position: Physician - Family Med Member Role: Lifetime Relationship Address: [address] [place] [address] Name: SUSHANT Banks Christina L Position: Physician - Podiatry Member Role: Lifetime Relationship Address: [address] Name: Erin Burgess Position: HIS Supervisor_P Member Role: HIS Lifetime Care Team Related Persons Name: RUDDY SALDIVAR Name: URBAN SALDIVAR Name: URBAN SALDIVAR Name: URBAN SALDIVAR Name: AUGEDA SALDIVAR
--- OUTSIDE RECORDS SUMMARY | 2024-09-11 20:12 | External Medical Summary | Continuity of Care Document ---
Author Name Unknown Organization [facility] [address] Address [address] [place], [place] [id number] Care Team Providers Care Head Of Commission Department Name Role Phone Jp Danielsheidi Primary Care Physician [phone] Encounter [facility] [id number] Date(s): 06/11/24 - 06/11/24 [facility] [address] [facility] [address] [facility] [address] [place], [place] [phone] Encounter Diagnosis Type 2 diabetes mellitus without complications(Final) - Discharge Disposition: Home or Self Care Attending Physician: MD Patterson Joseph P Referring Physician: MD Patterson Joseph P Allergies, Adverse Reactions, Alerts Substance Criticality Severity [...] AT BEDTIME,Note to Pharmacy: please use policy #[id number] per pt request, Pharmacy: [facility] Start Date: 02/24/24 Status: Ordered Aubagio [...] Refills: 3, Take with 40mg capsule, Pharmacy: [facility]/pharmacy #1916 Start Date: 04/01/24 Status: Ordered FLUoxetine 40 mg oral capsule Start: 06/09/24 9:52:00 AM EDT, See Instructions, Disp# 90 cap, Refills: 3, TAKE 1 CAPSULE DAILY, Note to Pharmacy: please use policy #[id number] per pt request, Pharmacy: [facility] Start Date: 06/09/24 Status: Ordered gabapentin 100 mg oral capsule Start: 11/22/21 7:48:00 AM EDT, 1 cap, PO, bid Start Date: 11/22/21 Status: Ordered GlipiZIDE XL 5 mg oral tablet, extended release Start: 06/09/24 9:52:00 AM EDT, 1 tab, PO, Daily, Disp# 90 tab, Refills: 3, Note to Pharmacy: please cancel IR script, Pharmacy: [facility] Start Date: 06/09/24 Stop Date: 06/04/25 Status: Ordered hydroCHLOROthiazide 25 mg oral tablet Start: 02/24/24 6:57:00 PM EDT, See Instructions, Disp# 90 tab, Refills: 3, TAKE 1 TABLET DAILY, [facility] Pharmacy: please use policy #[id number] per pt request, Pharmacy: [facility] Start Date: 02/24/24 Status: Ordered losartan 25 mg oral tablet Start: 09/18/23 9:53:00 PM EST, See Instructions, Disp# 45 tab, Refills: 3, TAKE 1/2 TABLET (=12.5MG) DAILY, Note to Pharmacy: please use policy #[id number] per pt request, Pharmacy: [facility]/pharmacy#1916 Start Date: 09/18/23 Status: Ordered metFORMIN 500 mg oral tablet Start: 06/09/24 9:52:00 AM EDT, 1 tab, PO, bid, Disp# 180 tab, Refills: 3, Pharmacy: [facility] Start Date: 06/09/24 Status: Ordered [...] DAILY, Note to Pharmacy: please use policy #[id number] per pt request, Pharmacy: [facility] Start Date: 02/24/24 Status: Ordered One Touch Delica Plus (33G) Lancets Start: 02/16/24 1:29:00 PM EDT, See Instructions, Disp# 100 each, check blood glucose 3x per day andas needed for concerns of hypo or hyperglycemia, Pharmacy: [facility]/pharmacy #1916 Start Date: 02/16/24 Status: [...] for concerns of hypo or hyperglycemia, [facility] Start Date: 02/16/24 Status: Ordered Ozempic (1 mg dose) 4 mg/3 mL subQ pen Start: 01/30/24 3:27:00 PM EDT, 1 mg =, subQ, q7days, Disp# 3 mL, Refills: 2, Pharmacy: [facility]/pharmacy #1916 Start Date: 01/30/24 Status: [...] 0, PRN: as needed for nausea/vomiting, [facility] Start Date: 05/20/23 Status: Ordered ZyrTEC Start: 03/05/16 2:09:00 PM EDT, 10 mg =, PO, Daily Start Date: 03/05/16 Status: Ordered Problem List Condition Confirmation Course Effective Dates [...] after weight loss from gastric sleeve surgery Procedures Procedure Date Related Diagnosis Body Site [...] 100lb but has gained 25lbs back. 31removal Results Laboratory List Name Date Hemoglobin A1C (HEMOGLOBIN, A1C) 4 Most recent to oldest [Reference Range]: 1 Estimated Average Glucose 166 mg/dL 1 (06/11/24 7:43 AM) HbA1c [4.0-6.0 %] 7.4 % *HI* (06/11/24 7:43 AM) 1Result Comment: Testing Performed By: [facility] [address], [facility] [address], [place] [address] Social History Social History Type Response Smoking Status Never smoked cigaret jose Sex Sex Representation Female (finding) Patient Care team information Care Team Personnel Name: DO Grace Amanda Position: Resident Member Role: Lifetime Relationship Address: [address] [address] [place] Name: Jaida Luevano Position: HIS Supervisor_P Member Role: HIS Lifetime Name: MD Daniels Christopher Position: Physician - Family Med Member Role: Primary Care Provider Address: [address] [address] [place] Name: Elham Medina Position: HIS Supervisor_P Member Role: HIS Lifetime Name: MD Mcduffie Juan Position: Physician - Family Med Member Role: Lifetime Relationship Address: [address] [place] [address] [place] Name: SUSHANT Banks Christina L Position: Physician - Podiatry Member Role: Lifetime Relationship Address: [address], [address] Name: Erin Burgess Position: HIS Supervisor_P Member Role: HIS Lifetime Care Team Related Persons Name: RUDDY SALDIVAR Name: URBAN SALDIVAR Name: URBAN SALDIVAR Name: URBAN SLADIVAR Name: AGUEDA SALDIVAR
--- OUTSIDE RECORDS SUMMARY | 2024-09-11 20:12 | External Medical Summary | Continuity of Care Document ---
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(Discharge Diagnosis) - 05/18/24 Hemangioma of skin(Discharge Diagnosis) - 05/18/24 Discharge Disposition: Home or Self Care Attending Physician: MD Guerra Thomas A Referring Physician: MD Guerra Thomas A Allergies, Adverse Reactions, Alerts Substance Criticality Severity Reaction Reaction Severity Status Copaxone Unable to assess criticality Severe Skin Necrosis Active Assessment and Plan Extracted from: Title:Clinical Document Author:MD Charlie, [facility] Date:05/18/24 OUTPATIENT NOTE Name: YOLANDA RITCHIE Patient Number:[id number] : 1975 Date of Service: 05/18/2024 _ Yolanda returns for reevaluation. She has a prior history of an atypical nevus removed from the right abdominal area many years ago. She has noted no sign of recurrence. 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 She notes an irritated skin colored papule 5 mm in diameter present on the right superior shoulder which rubs on her bra strap and she would like to have it removed. Clinical impression is that of an intradermal nevus irritated. It was removed today for that reason. Irritated lesion right shoulder. Consent obtained. Timeout signed. Lidocaine with epinephrine local anesthesia followed by tangential removal and electrocautery of the base. Specimen submitted for pathology. Patient will be informed of the result of the pathology report. Petrolatum bandage applied. Patient tolerated procedure well. Review of systems medications allergies as noted on the chart. Examination reveals pleasant well-nourished white female type I skin is alert and oriented x 3 with normal mood and affect. Examination of the head, neck, back, chest, arms, hands, fingers, abdominal area, legs, feet, and toes reveals findings as noted above, hemangiomas present on the abdomen scattered compound nevi present on the back which do not appear atypical and is otherwise unremarkable. The patient will return in 1 year for reevaluation. Immunizations Given and Recorded Vaccine Date Status [...] AT BEDTIME,Note to Pharmacy: please use policy #[id number] per pt request, [facility]acy: [facility] [...] Refills: 3, Take with 40mg capsule, Pharmacy: [facility]/pharmacy #[id number] Start Date: 04/01/24 Status: Ordered FLUoxetine 40 mg oral capsule Start: 09/18/23 9:53:00 PM EST, See Instructions, Disp# 90 cap, Refills: 3, TAKE 1 CAPSULE DAILY, Note to Pharmacy: please use policy #[id number] per pt request, Pharmacy: [facility]/pharmacy #[id number] Start Date: 09/18/23 Status: Ordered gabapentin 100 mg oral capsule Start: 11/22/21 7:48:00 AM EDT, 1 cap, PO, bid Start Date: 11/22/21 Status: Ordered GlipiZIDE XL 5 mg oral tablet, extended release Start: 01/27/24 10:08:00 AM EDT, 1 tab, PO, Daily, Disp# 90 tab, Refills: 3, Note to Pharmacy: pleasecancel IR script, Pharmacy: [facility]/pharmacy #[id number] Start Date: 01/27/24 Stop Date: 01/21/25 Status: Ordered hydroCHLOROthiazide 25 mg oral tablet Start: 02/24/24 6:57:00 PM EDT, See Instructions, Disp# 90 tab, Refills: 3, TAKE 1 TABLET DAILY, Noteto Pharmacy: please use policy #[id number] per pt request, [facility]acy: [facility] Start Date: 02/24/24 Status: Ordered losartan 25 mg oral tablet Start: 09/18/23 9:53:00 PM EST, See Instructions, Disp# 45 tab, Refills: 3, TAKE 1/2 TABLET (=12.5MG) DAILY, Note to Pharmacy: please use policy #[id number] per pt request, Pharmacy: [facility]/pharmacy#[id number] Start Date: 09/18/23 Status: Ordered metFORMIN 500 mg oral tablet Start: 01/06/24 3:51:00 PM EDT, 1 tab, PO, bid, Disp# 180 tab, Refills: 3, Pharmacy: [facility]/pharmacy #[id number] Start Date: 01/06/24 Status: Ordered multivitamin [...] DAILY, Note to Pharmacy: please use policy #[id number] per pt request, Pharmacy: [facility] Start Date: 02/24/24 Status: Ordered One Touch Delica Plus (33G) Lancets Start: 02/16/24 1:29:00 PM EDT, See Instructions, Disp# 100 each, check blood glucose 3x per day andas needed for concerns of hypo or hyperglycemia, Pharmacy: [facility]/pharmacy #[id number] Start Date: 02/16/24 Status: Ordered One Touch Verio Flex Glucose Monitor Start: 02/16/24 1:29:00 PM EDT, See Instructions, Disp# 1 each, Use daily for blood sugar monitoring, Note to Pharmacy: Dispense as written, Pharmacy: [facility]/pharmacy #[id number] Start Date: 02/16/24 Status: Ordered One Touch Verio Test Strips Start: 02/16/24 1:29:00 PM EDT, See Instructions, Disp# 100 each, Refills: 3, check blood glucose 3xper day and as needed for concerns of hypo or hyperglycemia, Pharmacy: [facility]/pharmacy #[id number] Start Date: 02/16/24 Status: Ordered Ozempic (1 mg dose) 4 mg/3 mL subQ pen Start: 01/30/24 3:27:00 PM EDT, 1 mg =, subQ, q7days, Disp# 3 mL, Refills: 2, Pharmacy: [facility]/pharmacy #[id number] Start Date: 01/30/24 Status: Ordered Ozempic (2 mg dose) 8 mg/3 mL subQ pen Start: 04/20/24 8:17:00 AM EDT, 2 mg =, subQ, q7days, Disp# 3 mL, Refills: 1, Note to Pharmacy: increase from 1 mg, Pharmacy: [facility]/pharmacy #[id number] Start Date: 04/20/24 Status: Ordered Vitamin D3 Start: 04/14/19 3:47:00 PM EDT, 2,000 Int_Unit =, Daily, two tabs daily Start Date: 04/14/19 Status: Ordered Zofran ODT 4 mg oral tablet, disintegrating Start: 05/20/23 12:53:00 PM EDT, 1 tab, PO, q8h, Disp# 20 tab, Refills: 0, PRN: as needed for nausea/vomiting, Pharmacy: [facility]/pharmacy #[id number] Start Date: 05/20/23 Status: Ordered ZyrTEC Start: 03/05/16 2:09:00 PM EDT, 10 mg =, PO, Daily Start Date: 03/05/16 Status: Ordered Mental Status 05/18/24 Barriers to Learning one year None evide nt Mandatory Health Literacy Documentation Yes Health Literacy Communication Barriers N ever Primary Language Latvian Problem List Condition Confirmation Course Effective Dates [...] Effective Dates Health Status Clinical Service Informant Skin lesion Discharge Diagnosis 05/18/24 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 She has a prior history of an atypical nevus removed from the right abdominal area many years ago. She has noted no sign of recurrence. 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 She notes an irritated skin colored papule 5 mm in diameter present on the right superior shoulder which rubs on her bra strap and she would like to have it removed. Clinical impression is that of anintradermal nevus irritated. It was removed today for that reason. Irritated lesion right shoulder. Consent obtained. Timeout signed. Lidocaine with epinephrine localanesthesia followed by tangential removal and electrocautery of the base. Specimen submitted for pathology. Patient will be informed of the result of the pathology report. Petrolatum bandage applied. Patient tolerated procedure well. Review of systems medications allergies as noted on the chart. Examination reveals pleasant well-nourished white female type I skin is alert and oriented x 3 withnormal mood and affect. Examination of the head, neck, back, chest, arms, hands, fingers, abdominalarea, legs, feet, and toes reveals findings as noted above, hemangiomas present on the abdomen scattered compound nevi present on the back which do not appear atypical and is otherwise unremarkable. The patient will return in 1 year for reevaluation. Electronic Signature on File Electronically Reviewed/Signed by: Luis F Guerra MD Author Signature Dt/Tm:05/18/2024 09:36 AM Department of Dermatology [facility] Patient Care team information Care Team Personnel Name: DO Grace Amanda Position: Resident Member Role: Lifetime Relationship Address: [address] [place] [address] [place] Name: Jaida Luevano Position: HIS Supervisor_P Member Role: HIS Lifetime Name: MD Daniels Christopher Position: Physician - Family Med Member Role: Primary Care Provider Address: [address] [place] [address] [place] Name: Elham Medina Position: HIS Supervisor_P Member Role: HIS Lifetime Name: MD Mcduffie Juan Position: Physician - Family Med Member Role: Lifetime Relationship Address: [address] [place] [address] Name: SUSHANT Banks Christina L Position: Physician - Podiatry Member Role: Lifetime Relationship Address: [address] Name: Erin Burgess Position: HIS Supervisor_P Member Role: HIS Lifetime Care Team Related Persons Name: RUDDY SALDIVAR Name: URBAN SALDIVAR Name: URBAN SALDIVAR Name: URBAN SALDIVAR Name: AGUEDA SALDIVAR
--- OUTSIDE RECORDS SUMMARY | 2024-09-11 20:12 | External Medical Summary | Continuity of Care Document ---
Author Name Unknown Organization [facility] [address] [address] [place] [phone] Care Team Providers Care Income Tax Analyst Name Role Phone Sumeet Daniels Primary Care Physician [phone] Encounter [facility] [place] [id number] Date(s): 04/20/24 - 04/20/24 [facility] [address] [place] [address] [facility] [address] [place] [address] [phone] Encounter Diagnosis Body mass index [BMI] 37.0-37.9, adult(Discharge Diagnosis) - 04/20/24 DM (diabetes mellitus), type 2(Discharge Diagnosis) - 04/20/24 Depression(Discharge Diagnosis) - 04/20/24 Discharge Disposition: Home or Self Care Attending Physician: MD Daniels Christopher Allergies, Adverse Reactions, Alerts Substance Criticality Severity Reaction Reaction Severity Status Copaxone Unable to assess criticality Severe Skin Necrosis Active Assessment and Plan Extracted from: Title:Follow up Author:DO Thorne Sophia El izabeth Date:04/20/24 1.Depression - chronic, at goal - goal: improve symptoms -will continue with 60mg of prozac for at least 6 mths; at that time, if pt wishes, may trial back down to 40 mg 2.DM (diabetes mellitus), type 2 - chronic, not at goal - goal: A1c <7.0 with only one medications (ie;ozempic) - pt's last A1c 6.3%; due for next one soon - will increase ozempic to2mg weekly for better glucose control and improvement in her weight which will also help her BS control; continue glipizide 5 mg, metformin 500 mg IR BID - with next A1c check, if still controlled, will discontinue glipizide - f/u in May/Jun Immunizations Given and Recorded Vaccine Date Status [...] AT BEDTIME,Note to Pharmacy: please use policy #[id number] per pt request, [facility]acy: [facility] Start Date: 02/24/24 Status: Ordered Aubagio [...] Refills: 3, Take with 40mg capsule, Pharmacy: [facility]/pharmacy #[id number] Start Date: 04/01/24 Status: Ordered FLUoxetine 40 mg oral capsule Start: 09/18/23 9:53:00 PM EST, See Instructions, Disp# 90 cap, Refills: 3, TAKE 1 CAPSULE DAILY, Note to Pharmacy: please use policy #[id number] per pt request, Pharmacy: [facility]/pharmacy #[id number] Start Date: 09/18/23 Status: Ordered gabapentin 100 mg oral capsule Start: 11/22/21 7:48:00 AM EDT, 1 cap, PO, bid Start Date: 11/22/21 Status: Ordered GlipiZIDE XL 5 mg oral tablet, extended release Start: 01/27/24 10:08:00 AM EDT, 1 tab, PO, Daily, Disp# 90 tab, Refills: 3, Note to Pharmacy: pleasecancel IR script, Pharmacy: [facility]/pharmacy #[id number] Start Date: 01/27/24 Stop Date: 01/21/25 Status: Ordered hydroCHLOROthiazide 25 mg oral tablet Start: 02/24/24 6:57:00 PM EDT, See Instructions, Disp# 90 tab, Refills: 3, TAKE 1 TABLET DAILY, Noteto Pharmacy: please use policy #[id number] per pt request, Pharmacy: [facility] Start Date: 02/24/24 Status: Ordered losartan 25 mg oral tablet Start: 09/18/23 9:53:00 PM EST, See Instructions, Disp# 45 tab, Refills: 3, TAKE 1/2 TABLET (=12.5MG) DAILY, Note to Pharmacy: please use policy #[id number] per pt request, Pharmacy: [facility]/pharmacy#[id number] Start Date: 09/18/23 Status: Ordered metFORMIN 500 mg oral tablet Start: 01/06/24 3:51:00 PM EDT, 1 tab, PO, bid, Disp# 180 tab, Refills: 3, Pharmacy: [facility]/pharmacy #[id number] Start Date: 01/06/24 [...] DAILY, Note to Pharmacy: please use policy #[id number] per pt request, Pharmacy: [facility] Start Date: 02/24/24 Status: Ordered One Touch Delica Plus (33G) Lancets Start: 02/16/24 1:29:00 PM EDT, See Instructions, Disp# 100 each, check blood glucose 3x per day andas needed for concerns of hypo or hyperglycemia, Pharmacy: [facility]/pharmacy #[id number] Start Date: 02/16/24 Status: Ordered One Touch Verio Flex Glucose Monitor Start: 02/16/24 1:29:00 PM EDT, See Instructions, Disp# 1 each, Use daily for blood sugar monitoring, Note to Pharmacy: Dispense as written, Pharmacy: [facility]/pharmacy #[id number] Start Date: 02/16/24 Status: Ordered One Touch Verio Test Strips Start: 02/16/24 1:29:00 PM EDT, See Instructions, Disp# 100 each, Refills: 3, check blood glucose 3xper day and as needed for concerns of hypo or hyperglycemia, Pharmacy: [facility]/pharmacy #[id number] Start Date: 02/16/24 Status: Ordered Ozempic (1 mg dose) 4 mg/3 mL subQ pen Start: 01/30/24 3:27:00 PM EDT, 1 mg =, subQ, q7days, Disp# 3 mL, Refills: 2, Pharmacy: [facility]/pharmacy #[id number] Start Date: 01/30/24 Status: Ordered Ozempic (2 mg dose) 8 mg/3 mL subQ pen Start: 04/20/24 8:17:00 AM EDT, 2 mg =, subQ, q7days, Disp# 3 mL, Refills: 1, Note to Pharmacy: increase from 1 mg, Pharmacy: [facility]/pharmacy #191 Start Date: 04/20/24 Status: Ordered Vitamin D3 Start: 04/14/19 3:47:00 PM EDT, 2,000 Int_Unit =, Daily, two tabs daily Start Date: 04/14/19 Status: Ordered Zofran ODT 4 mg oral tablet, disintegrating Start: 05/20/23 12:53:00 PM EDT, 1 tab, PO, q8h, Disp# 20 tab, Refills: 0, PRN: as needed for nausea/vomiting, Pharmacy: [facility]/pharmacy #[id number] Start Date: 05/20/23 Status: Ordered ZyrTEC Start: 03/05/16 2:09:00 PM EDT, 10 mg =, PO, Daily Start Date: 03/05/16 Status: Ordered Mental Status 04/20/24 Barriers to Learning one year None evide nt Mandatory Health Literacy Documentation Yes Health Literacy Communication Barriers N ever Primary Language Nepali Problem List Condition Confirmation Course Effective Dates [...] DM (diabetes mellitus), type 2 Discharge Diagnosis 04/20/24 Non-Specified Body mass index [BMI] 37.0-37.9, adult Discharge Diagnosis 04/20/24 Non-Specified Depression Discharge Diagnosis 04/20/24 Non-Specified Procedures Procedure Date Related Diagnosis Body [...] recent to oldest [Reference Range]: 1 Height 162.5 cm (04/20/24 7:59 AM) Patient Weight 98.9 kg (04/20/24 7:59 AM) Body Mass Index 37.45 kg/m2 (04/20/24 7:59 AM) Temperature [36.5-37.9 DegC] 36.8 DegC (04/20/24 7:59 AM) Heart Rate 97 bpm (04/20/24 7:59 AM) Blood Pressure 122/80mmHg (04/20/24 7:59 AM) Cuff Pulse Pressure 42 mmHg (04/20/24 7:59 AM) Social History Social History Type Response Smoking Status Never smoked cigaret jose Sex Sex Representation Female (finding) FCM Outpt Note * MD Daniels Christopher: MODIFY MD Daniels Christopher: MODIFY Event Display: FCM Outpt Note Authored Date: [id number] Chief Complaint 2 month f/u. History of Present Illness Pt is a 49 yo female with PMH of MS, DM, HLD, HTN, and migraines presenting for a follow up. DM - pt currently on ozempic 1 mg weekly, glipizide 5 mg, and metformin IR 500mg BID - last A1c: 11/2023 6.3% - last lipids: 08/2023 - last Cr: 08/2023 Depression - increased prozac to 60 mg daily - PHQ9 stable= 5 Pt notesshe is still bleeding from herhysterectomy. MAT MACHINE TENDER has cauterized her granulation tissue since and she is seeing them again next week. [facility] because they foundanew MS lesion recently.Herneurologist isDr. Orantes. Review of Systems As per HPI Physical Exam Vitals & Measurements T:36.8C HR:97(Monitored) BP:122/80 SpO2:98% HT:162.5cm WT:98.900kg(Dosing) WT:98.9kg BMI:37.45 PHQ2 Data(Data Documented on:04/20/2024 07:58) Emotional health assessment NEGATIVE PHQ-9 Data(Data Documented on:04/20/2024 08:11) PHQ-9 Severity Score:5 Thoughts that you would be better off or of hurting yourself in some way?Not at All Depression Risk:Not Elevated General:well appearing, alert and oriented,no acute distress Cardiovascular: clinically well perfused Respiratory: respirations are non-labored Psych: Mood and affect congruent. Speech of normal pace and content. Assessment/Plan 1.Depression - chronic, at goal - goal: improve symptoms -will continue with 60mg of prozac for at least 6 mths; at that time, if pt wishes, may trial back down to 40 mg 2.DM (diabetes mellitus), type 2 - chronic, not at goal - goal: A1c <7.0 with only one medications (ie;ozempic) - pt's last A1c 6.3%; due for next one soon - will increase ozempic to2mg weekly for better glucose control and improvement in her weight which will also help her BS control; continue glipizide 5 mg, metformin 500 mg IR BID - with next A1c check, if still controlled, will discontinue glipizide - f/u in May/Jun Attestation Pt seen and examined in concert with Dr. Thorne, agree with history and physical as documented above. Plan reviewed in detail. Any corrections or additions are noted here - ongoing management of MDD with tolerance of fluoxetine without adverse effect and with benefit. Re: DMII, agree w/ increase semaglutide and consider decrease glipizide/discontinue with ongoing improved A1c. Problem List/Past Medical History Ongoing Anxiety Carpal tunnel syndrome Depression Depression DM (diabetes mellitus), type 2 GERD (gastroesophageal reflux disease) Glaucoma Hyperlipidemia Hyperlipidemia Hypertension Left sided numbness Migraine Multiple sclerosis Myofascial neck pain Nevus Occipital neuralgia Plantar fasciitis, left Sleep apnea Tear of medial meniscus of left knee Urinary frequency Wrist pain, right Resolved Abnormal brain MRI Abnormal MRI Allergic rhinitis Gallbladder disease Left knee pain Myofascial pain Procedure/Surgical History Colonoscopy| Service Date: 09/11/2022Ultrasound scan of pelvis| Service Date: 07/12/2022have biopsy and cauterization of skin| Service Date: 04/23/2022iagnostic mammogram| Service Date:03/18/2022X-ray of right knee| Service Date: 11/22/2021Mammogram| Service Date: 03/08/2021MRA head| Service Date: 03/06/2021Mammogram| Service Date: 08/09/2020Mammogram| Service Date: 03/08/2020Biopsy of R breast| Service Date: 2020Diagnostic mammogram| Service Date: 02/15/2020CT of chest w/o contrast| Service Date: 06/01/2019Spinal tap| Service Date: 05/2019Mam mogram| Service Date: 04/20/2019 MRI of cervical spine [...] GASTRECTOMY| Service Date: 2011Tubal ligation| Service Date: 2011Ablation| Service Date: 2010Cesarean section| Service Date: 2010Laser surgery| Service Date: 2005Cesarean section| Service Date: 2002Cholecystectomy| Service Date: 2002Colonoscopy| Service Date: 1995Tonguegall bladderAblationCesarean deliveryGastricTonsillectomyKidney stone Medications atorvastatin(atorvastatin 40 mg oral tablet), See Instructions, 3 refills baclofen(baclofen 20 mg oral tablet) cetirizine(ZyrTEC), 10 mg, PO, Daily cholecalciferol(Vitamin D3), 1999 Int_Unit, Daily diabetes supplies(One Touch Verio Flex Glucose Monitor), See Instructions diabetes supplies(One Touch Verio Test Strips), See Instructions, 3 refills diabetes supplies(One Touch Delica Plus (33G) Lancets), See Instructions ferrous sulfate FLUoxetine(FLUoxetine 40 mg oral capsule), See Instructions, 3 refills FLUoxetine(FLUoxetine 20 mg oral capsule), 20 mg= 1 cap, PO, Daily, 3 refills gabapentin(gabapentin 100 mg oral capsule), 100 mg= 1 cap, PO, bid glipiZIDE(GlipiZIDE XL 5 mg oral tablet, extended release), 5 mg= 1 tab, PO, Daily, 3 refills hydroCHLOROthiazide(hydroCHLOROthiazide 25 mg oral tablet), See Instructions, 3 refills losartan(losartan 25 mg oral tablet), See Instructions, 3 refills metFORMIN(metFORMIN 500 mg oral tablet), [...] mL subQ pen), 2 mg, subQ, q7days, 1 refills semaglutide(Ozempic (1 mg dose) 4 mg/3 mL subQ pen), 1 mg, subQ, q7days, 2 refills teriflunomide(Aubagio 14 mg oral tablet), 14 [...] Status Family Member(s) Immunizations Vaccine Date Status influenza virus vaccine, inactivated 05/23/2023 Recorded SARS [...] Recommendations Health Maintenance Pending(in the next year) OverDue Adult Influenza Vaccine due02/22/24and every 1year Due Adult COVID-19 Vaccination due04/20/24Unknown Frequency Adult Social Determinants of Health Screening due04/20/24Unknown Frequency Hepatitis C Screening due04/20/24One-time only Shingles Vaccine due04/20/24One-time only Due In Future Diabetes Management A1c not due until12/09/24and every Satisfied(in the past 1 year) Satisfied Adult Influenza Vaccine on05/23/23.Satisfied by AVE Shen Paul Body Mass Index on04/20/24.Satisfied by AVE Kitchen Vanessa T Breast Cancer Screening on04/02/24.Satisfied by SLAVA Sultana Lynnae Diabetes Management A1c on12/09/23.Satisfied by Contributor_system, [id number] Diabetes Nephropathy Management on08/29/23.Satisfied by Contributor_system, [id number] Diabetic Eye Exam on10/10/23.Satisfied by SLAVA Sultana Lynnae Lipid Screening on08/29/23.Satisfied by Contributor_system, [email or web address] Electronic Signature on File Electronically Reviewed/Signed by: Sandy Thorne DO Author Signature Dt/Tm:04/20/2024 08:32 AM Resident Department of Family Medicine Electronically Reviewed/Signed by: MD Lalo Morfinignheidi Signature Dt/Tm: 04/20/2024 03:43PM Department of Family Medicine SES Patient Care team information Care Team Personnel Name: DO Grace Amanda Position: Resident Member Role: Lifetime Relationship Address: [address] [place] [address] [place] Name: Jaida Luevano Position: HIS Supervisor_P Member Role: HIS Lifetime Name: MD Jeremiah, Sumeet Position: Physician - Family Med Member Role: Primary Care Provider Address: [address] [facility] [address], [address] Name: Elham Medina Position: HIS Supervisor_P Member Role: HIS Lifetime Name: MD Mcdufife Juan Position: Physician - Family Med Member Role: Lifetime Relationship Address: [address] [place] [address] Name: SUSHANT Banks Christina L Position: Physician - Podiatry Member Role: Lifetime Relationship Address: [address], [address] Name: Erin Burgess Position: HIS Supervisor_P Member Role: HIS Lifetime Care Team Related Persons Name: RUDDY SALDIVAR Name: URBAN SALDIVAR Name: URBAN SALDIVAR Name: URBAN SALDIVAR Name: AGUEDA SALDIVAR"
--- NOTE | 2024-09-11 20:32 | Emergency Department Note ---
Impression & Plan Multiple sclerosis ADMIT ED Provider Note HPI: History obtained from patient. The patient is a 49-year-old female with history of MS, migraine complex, presents the emergency department with a chief complaint of visual changes and numbness/tingling on the left side of her body. Patient states she is also had a mild headache. Patient states that the symptoms seem to have just acutely worsened over about the past 2 to 3 days. Patient states she did have some symptoms similar nature after [place] this year, she was placed on a Medrol Dosepak by her neurologist in [place] through [facility] in early August. Patient states that this did seem to improve her symptoms but then just over the past several days they acutely worsened. She states she finished her steroid course on September 01. On arrival here to the ED the patient is hemodynamically stable, she does not have any obvious focal deficits on my exam, she otherwise appears to be in no acute distress. Patient states that she has not previously required any inpatient admissions or visits to the emergency room for MS flares. Patient states she has had similar symptoms in the past associated with MS flares but they have not been this severe. ROS: - Per HPI Differential Diagnosis: MS flare, stroke, intracranial hemorrhage, intracranial mass, anxiety attack with paresthesias, migraine complex, amongst other potential pathologies. *Outpatient medications and allergy history reviewed. PE: General: Alert HEENT: Normocephalic, trachea midline Eyes: Extraocular eye movement is intact, no scleral erythema Pulmonary: Clear to auscultation bilaterally, no wheezing Cardio: Regular rate and rhythm GI: Abdomen is soft to palpation : No suprapubic tenderness MSK: No evidence of trauma or malformation of the extremities, no edema Skin: No evidence of rash Neuro: Alert, no focal deficits, ambulates all extremity spontaneously, no drift of the upper extremities or lower extremities with testing against gravity, symmetrical facial movements are appreciated Psychiatric: Cooperative INDEPENDENT INTERPRETATIONS: pvc monitor: (As interpreted by myself): - An order was placed for continuous cardiac monitoring - Patient was noted to be in sinus rhythm with a rate of 95 EKG: (As interpreted by myself): Rate: 92 Rhythm: Normal sinus rhythm Intervals: Within normal limits ST changes: No ST elevation Time: 2024 Interventions provided in ED: -IV Decadron Medical Decision Making: IV was established and lab work obtained, patient was placed on monitoring manager. Lab work shows no leukocytosis, hemoglobin is normal, platelet count is normal, CMP shows a mild hypokalemia 3.1, otherwise no critical findings are noted. Given the patient's history of MS, I did discuss MRI imaging with the patient and she would like MRI to be performed. This was done with and without contrast and shows evidence of T2 flair signaling consistent with demyelinating disease. On my reassessment following a small dose of IV Decadron, patient states she is feeling somewhat improved but still does remain with some bilateral paresthesias and mild visual changes. Patient states she would prefer admission and neurology consultation as an inpatient versus discharge. Despite overall improvement, she still does have some ongoing symptoms and will be admitted, therefore we will start high-dose steroids. Routine consultation was placed for neurology (Dr. Dior) from the ED. Patient was discussed with the on-call hospitalist, Dr. Dillard, and the patient was placed for admission in stable condition. Consultants/Discussions held with other healthcare providers: -Hospitalist, Dr. Dillard Disposition discussion held by myself with: -Patient Diagnosis: 1. Paresthesias, acute, bilateral 2. Nonspecific visual change, acute 3. History of MS Disposition: Admission Clive Sher DO Emergency Medicine Past Med/Surg History Problem List (Updated 09/11/24 @ 23:34 by Lisha Tejada PA-C) Hypomagnesemia Anxiety Hypertension controlled, stable per pt Diabetes mellitus, type 2 NIDDM Hypokalemia Multiple sclerosis exacerbation Multiple sclerosis (Acute) Dysuria Family history of breast cancer in first degree relative mother, age 55 Medical History Bifascicular block ongoing since 2020 History of anesthesia reaction woke during a cysto once, put back under quickly, but for next procedure was given too much anesthesia, and was quite slow to wake Recurrent UTI none at present GERD (gastroesophageal reflux disease) controlled, stable per pt 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 Hyperlipidemia History of COVID-19 (2021) Sleep apnea hx of as child > no cpap for several yrs, also lost weight Diabetes mellitus, type 2 NIDDM Migraine Botox injections [id number] > next dose 01/12/24 Depression Multiple sclerosis Hypertension controlled, stable per pt Dizziness found to be related to MS Surgical History History of colonoscopy History of breast biopsy benign-right History of cystoscopy Hx of surgical procedure tongue reduction for sleep apnea S/P laparoscopic sleeve gastrectomy S/P wisdom tooth extraction H/O tubal ligation S/P tonsillectomy Renal lithiasis hx of > cysto S/P endometrial ablation S/P cholecystectomy S/P section x2 Family History Mother Breast cancer, Onset Age: 55 Gestational diabetes Hypertension Dyslipidemia Father Gestational diabetes Hypertension Dyslipidemia Denies family history of Ovarian cancer Colorectal cancer Uterine cancer Social History Smoking Status: Never smoker Second Hand Exposure: No; Do You Dip or Chew Tobacco: No; Hx Alcohol Use: No Hx Substance Use: No Preferred Language: Bangladeshi Communication Ability: Effective Clinical Account Manager Required: No Beliefs That Will Affect Care: None Current Living Situation: Spouse Feels Safe at Home: Yes Assistive Devices: Glasses Allergies Allergies Allergy/AdvReac Type Severity Reaction Status Date / Time glatiramer (copolymer 1) Allergy Severe skin Verified 03/24/24 12:00 [From [employer]] breakdown adhesive tape Allergy Intermediate Rash Verified 03/24/24 12:00 Home Meds Home Medications Medication Instructions Recorded Confirmed atorvastatin 40 mg tablet 40 mg PO HS 12/11/18 03/24/24 fluoxetine 40 mg capsule 40 mg PO QAM 12/11/18 03/24/24 losartan 25 mg tablet 25 mg PO QAM 12/11/18 03/24/24 omeprazole 20 mg capsule,delayed 20 mg PO QAM 12/11/18 03/24/24 release cholecalciferol (vitamin D3) 50 5,000 units PO DAILY 07/02/19 03/24/24 mcg (2,000 unit) tablet ferrous sulfate 325 mg (65 mg 325 mg PO Q OTHER DAY 07/23/21 03/24/24 iron) tablet metformin 500 mg tablet 500 mg PO BID 07/23/21 03/24/24 teriflunomide 14 mg tablet 14 mg PO QAM 07/23/21 03/24/24 (Aubagio) ondansetron HCl 4 mg tablet 4 mg PO UD PRN Nausea 07/26/22 03/24/24 baclofen 20 mg tablet 20 mg PO BID 12/29/23 03/24/24 cetirizine 10 mg capsule (Zyrtec) 10 mg PO QAM 12/29/23 03/24/24 gabapentin 100 mg capsule 100 mg PO BID 12/29/23 03/24/24 glipizide 5 mg tablet 5 mg PO QAM 12/29/23 03/24/24 hydrochlorothiazide 25 mg tablet 25 mg PO QAM 12/29/23 03/24/24 multivitamin with iron 1 tab PO DAILY 12/29/23 03/24/24 nortriptyline 25 mg capsule 25 mg PO HS 12/29/23 03/24/24 semaglutide 1 mg/dose (4 mg/3 mL) 1 mg subcut WK 12/29/23 03/24/24 subcutaneous pen injector (Ozempic) docusate sodium 100 mg capsule 100 mg PO DAILY 01/16/24 03/24/24 (Colace) d-mannose PO 01/29/24 03/24/24 Results & Data (ED) Vital Signs Vital Signs - 24 hr 09/11/24 20:09 09/11/24 20:31 09/11/24 20:42 Temperature 36.3 C L Temperature Source Temporal Artery Scan Pulse Rate 93 H 91 H 94 H Pulse Rate from SpO2 Sensor Respiratory Rate 16 24 Blood Pressure 153/88 H 142/98 H Blood Pressure Mean 109 112 Pulse Oximetry 97 Oxygen Delivery Method Room Air Sepsis Recent Fever Within 48 Hours No Sepsis New/Unexplained Change in Mental Status No Sepsis Action Taken by Nursing No Action Required 09/11/24 21:03 09/11/24 21:30 09/11/24 22:27 Temperature Temperature Source Pulse Rate 86 94 H Pulse Rate from SpO2 Sensor 87 93 H Respiratory Rate 15 12 Blood Pressure 140/98 146/98 H 125/79 Blood Pressure Mean 112 114 103 Pulse Oximetry 98 99 Oxygen Delivery Method Sepsis Recent Fever Within 48 Hours Sepsis New/Unexplained Change in Mental Status Sepsis Action Taken by Nursing 09/11/24 22:48 09/11/24 23:00 09/11/24 23:00 Temperature Temperature Source Pulse Rate 90 Pulse Rate from SpO2 Sensor 90 Respiratory Rate 21 Blood Pressure 133/94 133/94 Blood Pressure Mean 107 107 Pulse Oximetry 97 Oxygen Delivery Method Sepsis Recent Fever Within 48 Hours Sepsis New/Unexplained Change in Mental Status Sepsis Action Taken by Nursing 09/11/24 23:00 09/11/24 23:00 09/11/24 23:30 Temperature Temperature Source Pulse Rate 85 86 Pulse Rate from SpO2 Sensor 85 89 Respiratory Rate 13 12 Blood Pressure 133/94 Blood Pressure Mean 107 Pulse Oximetry 97 97 Oxygen Delivery Method Sepsis Recent Fever Within 48 Hours Sepsis New/Unexplained Change in Mental Status Sepsis Action Taken by Nursing 09/11/24 23:30 09/11/24 23:45 09/12/24 00:00 Temperature Temperature Source Pulse Rate 92 H Pulse Rate from SpO2 Sensor 92 H Respiratory Rate 17 Blood Pressure 129/83 137/97 Blood Pressure Mean 97 108 Pulse Oximetry 97 Oxygen Delivery Method Sepsis Recent Fever Within 48 Hours Sepsis New/Unexplained Change in Mental Status Sepsis Action Taken by Nursing 09/12/24 00:03 Temperature Temperature Source Pulse Rate 91 H Pulse Rate from SpO2 Sensor 92 H Respiratory Rate 19 Blood Pressure Blood Pressure Mean Pulse Oximetry 96 Oxygen Delivery Method Sepsis Recent Fever Within 48 Hours Sepsis New/Unexplained Change in Mental Status Sepsis Action Taken by Nursing Laboratory Data 09/11/24 20:45 09/11/24 20:45 Lab Results 09/11/24 Range/Units 20:45 WBC 6.69 (4.8-10.8) K/ul RBC 4.90 (4.20-5.40) M/uL Hgb 13.1 (12.0-16.0) g/dl Hct 39.3 (37.0-47.0) % MCV 80.2 (80.0-100.0) fL MCH 26.7 (25.0-34.0) pg MCHC 33.3 (32.0-36.0) g/dL RDW Std Deviation 42.5 (36.4-46.3) fL RDW Coeff of Marco Antonio 14.7 H (11.5-14.5) % Plt Count 309 (130-400) K/uL MPV 9.4 (9.4-12.4) fL Immature Gran % (Auto) 0.3 % Neut % (Auto) 51.9 % Lymph % (Auto) 35.6 % [place] % (Auto) 9.7 % Eos % (Auto) 1.6 % Baso % (Auto) 0.9 % Neut # (Auto) 3.47 (1.40-6.50) K/uL Lymph # (Auto) 2.38 (1.20-3.40) K/uL [place] # (Auto) 0.65 H (0.11-0.59) K/uL Eos # (Auto) 0.11 (0.00-0.50) K/uL Baso # (Auto) 0.06 (0.00-0.20) K/uL Immature Gran # (Auto) 0.02 (0.01-0.20) K/uL PT 9.8 (9.0-12.0) Seconds INR 0.9 (0.9-1.1) Sodium 139 (136-145) mmol/L Potassium 3.1 L (3.5-5.1) mmol/L Chloride 102 (98-107) mmol/L Carbon Dioxide 30 (21-32) mmol/L Anion Gap 7 (3-11) BUN 10 (6-23) mg/dl Creatinine 0.83 (0.6-1.2) mg/dl Est Cr Clr Drug Dosing 93.5 ml/min eGFR 86.90 BUN/Creatinine Ratio 12.0 (10-20) Glucose 153 H (70-99(Fasting)) mg/dl Calcium 9.4 (8.6-10.3) mg/dl Magnesium 1.6 L (1.7-2.4) mg/dl Total Bilirubin 0.5 (0.2-1.0) mg/dl AST 19 (13-39) U/L ALT 19 (7-52) U/L Alkaline Phosphatase 59 (34-104) U/L Total Protein 7.1 (6.0-8.3) gm/dl Albumin 4.4 (3.4-5.0) gm/dl Globulin 2.7 (2.5-4.0) gm/dl Albumin/Globulin Ratio 1.6 (0.9-2) Administered Medications Magnesium Sulfate/Dextrose (Magnesium Sulfate / D5w) 1 gm in 100 mls @ 50 mls/hr IV ONE ONE Stop: 09/12/24 01:33 Last Admin: 09/12/24 00:22 Dose: 50 mls/hr Documented By: ES Discontinued Medications Dexamethasone Sodium Phosphate (DexamethasonePf 10 Mg/Ml Vial) 10 mg IV NOW ONE Stop: 09/11/24 20:28 Last Admin: 09/11/24 21:22 Dose: 10 mg Documented By: LJM Gadobutrol (Gadobutrol 10ml Vial) 9.6 ml IV ONCE ONE Stop: 09/11/24 22:13 Last Admin: 09/11/24 22:13 Dose: 9.6 ml Documented By: JOSEFINA Sodium Chloride (Nss) 1,000 mls @ 999 mls/hr IV .Q1H1M ONE Stop: 09/11/24 21:28 Last Infusion: 09/11/24 23:12 Dose: Infused Documented By: Admin: 09/11/24 21:22 Dose: 999 mls/hr Documented By: SHAMA Lorazepam (Lorazepam 2 Mg/1 Ml Vial) 1 mg IV NOW STA Stop: 09/11/24 20:40 Last Admin: 09/11/24 21:22 Dose: 1 mg Documented By: SHAMA Potassium Chloride (Potassium Chloride Crtab 20 Meq Tabcr) 40 meq PO NOW STA Stop: 09/11/24 23:01 Last Admin: 09/11/24 23:14 Dose: 40 meq Documented By: DEVONTE Imaging Data Radiologist's Impression: Brain MRI 09/11/24 20:27 Exam(s): MRI HEAD W/WO Contrast IV Amt: 9.6ml gadavist EXAM: MR Head Without and With Intravenous Contrast CLINICAL HISTORY: Reason for exam: numbness, visual changes, hx MS. TECHNIQUE: Magnetic resonance images of the head/brain without and with intravenous contrast in multiple planes. CONTRAST: Patient received 9.6ml gadavist of IV contrast COMPARISON: No relevant prior studies available. FINDINGS: Brain: T2/flair signal hyperintensities scattered throughout the subcortical white matter. In particular there are lesions within the occipital lobe, varsha, and left temporal lobe is demonstrated particularly significant signal abnormality. None of the lesions enhance on the postcontrast images. No hemorrhage. No acute infarct. Ventricles: Unremarkable. No ventriculomegaly. Bones/joints: Unremarkable. No acute fracture. Sinuses: Unremarkable as visualized. No acute sinusitis. Mastoid air cells: Unremarkable as visualized. No mastoid effusion. Orbits: Unremarkable as visualized. IMPRESSION: T2/flair signal hyperintensity scattered throughout the subcortical white matter. These do not enhance on the postcontrast images. Findings however are suggestive of demyelinating disease such as multiple sclerosis given the patient's clinical history. Recommend repeat MRI in 3-6 months to assess for continued evolution.. Electronically signed by: Bryan Limon MD 09/11/24 22:45 PM Discharge Plan Visit Data Chief Complaint: Illness Stated Complaint: FLARE UP OF MS ED Provider: Clive Sher Discharge Problem: Multiple sclerosis Forms Stand Alone Forms: My [facility] Prescriptions Prescriptions: No Action cholecalciferol (vitamin D3) 2,000 unit tablet 5,000 units PO DAILY ondansetron HCl 4 mg tablet 4 mg PO UD PRN (Reason: Nausea) d-mannose PO fluoxetine 40 mg capsule 40 mg PO QAM atorvastatin 40 mg tablet 40 mg PO HS losartan 25 mg tablet 25 mg PO QAM omeprazole 20 mg capsule,delayed release(DR/EC) 20 mg PO QAM metformin 500 mg tablet 500 mg PO BID ferrous sulfate 325 mg (65 mg iron) Tablet 325 mg PO Q OTHER DAY teriflunomide [Aubagio] 14 mg tablet 14 mg PO QAM baclofen 20 mg Tablet 20 mg PO BID nortriptyline 25 mg Capsule 25 mg PO HS hydrochlorothiazide 25 mg Tablet 25 mg PO QAM gabapentin 100 mg Capsule 100 mg PO BID glipizide 5 mg Tablet 5 mg PO QAM multivitamin with iron Tablet 1 tab PO DAILY Zyrtec 10 mg Capsule 10 mg PO QAM Ozempic 1 mg/dose (4 mg/3 mL) Pen Injector 1 mg SUBCUT WK Patient Comments: > last dose january 07 docusate sodium [Colace] 100 mg Capsule 100 mg PO DAILY Referrals Referrals: Sumeet Daniels MD [Primary Care Provider] -
[2024-09-11] MEDS: SODIUM CHLORIDE 0.9% 1,000 ML IV ONE (21:22)
[2024-09-11] MEDS: LORazepam 2 MG/1 ML VIAL IV STA (21:22)
[2024-09-11] MEDS: dexAMETHasone**PF** 10 MG/ML VIAL IV ONE (21:22)
[2024-09-11 21:25] LABS: Albumin Globulin Ratio 1.6 (0.9-2); Albumin Level 4.4 gm/dl (3.4-5.0); Bilirubin,Total 0.5 mg/dl (0.2-1.0); Calcium 9.4 mg/dl (8.6-10.3); Creatinine Clr Calc Pharmacy 93.5 ml/min; Globulin 2.7 gm/dl (2.5-4.0); Potassium 3.1 mmol/L (3.5-5.1); Total Protein 7.1 gm/dl (6.0-8.3)
[2024-09-11 21:28] LABS: Basophils # (auto) 0.06 K/uL (0.00-0.20); Basophils % (auto) 0.9 %; Eosinophils # (auto) 0.11 K/uL (0.00-0.50); Eosinophils % (auto) 1.6 %; Hematocrit (blood only) 39.3 % (37.0-47.0); Hemoglobin 13.1 g/dl (12.0-16.0); Immature Granulocytes # (auto) 0.02 K/uL (0.01-0.20); Immature Granulocytes % (auto) 0.3 %; Lymphocytes # (auto) 2.38 K/uL (1.20-3.40); Lymphocytes % (auto) 35.6 %; Mean Corpuscular Hemoglobin 26.7 pg (25.0-34.0); Mean Corpuscular Hgb Conc 33.3 g/dL (32.0-36.0); Mean Corpuscular Volume 80.2 fL (80.0-100.0); Mean Platelet Volume 9.4 fL (9.4-12.4); Monocytes # (auto) 0.65 K/uL (0.11-0.59); Monocytes % (auto) 9.7 %; Neutrophils # (auto) 3.47 K/uL (1.40-6.50); Neutrophils % (auto) 51.9 %; Platelet Count 309 K/uL (130-400); RDW Coefficient of Variation 14.7 % (11.5-14.5); RDW Standard Deviation 42.5 fL (36.4-46.3); White Blood Count 6.69 K/ul (4.8-10.8)
[2024-09-11 21:35] LABS: INR 0.9 (0.9-1.1); Prothrombin Time 9.8 Seconds (9.0-12.0)
[2024-09-11] MEDS: GADOBUTROL 10ML VIAL IV ONE (22:13)
--- NOTE | 2024-09-11 22:46 | Magnetic Resonance Report ---
Exam(s): MRI HEAD W/WO Contrast IV Amt: 9.6ml gadavist EXAM: MR Head Without and With Intravenous Contrast CLINICAL HISTORY: Reason for exam: numbness, visual changes, hx MS. TECHNIQUE: Magnetic resonance images of the head/brain without and with intravenous contrast in multiple planes. CONTRAST: Patient received 9.6ml gadavist of IV contrast COMPARISON: No relevant prior studies available. FINDINGS: Brain: T2/flair signal hyperintensities scattered throughout the subcortical white matter. In particular there are lesions within the occipital lobe, varsha, and left temporal lobe is demonstrated particularly significant signal abnormality. None of the lesions enhance on the postcontrast images. No hemorrhage. No acute infarct. Ventricles: Unremarkable. No ventriculomegaly. Bones/joints: Unremarkable. No acute fracture. Sinuses: Unremarkable as visualized. No acute sinusitis. Mastoid air cells: Unremarkable as visualized. No mastoid effusion. Orbits: Unremarkable as visualized. IMPRESSION: T2/flair signal hyperintensity scattered throughout the subcortical white matter. These do not enhance on the postcontrast images. Findings however are suggestive of demyelinating disease such as multiple sclerosis given the patient's clinical history. Recommend repeat MRI in 3-6 months to assess for continued evolution.. Electronically signed by: Bryan Limon MD 09/11/24 22:45 PM
[2024-09-11] MEDS: POTASSIUM CHLORIDE CRTAB 20 MEQ TABCR PO STA (23:14)
[2024-09-11] MEDS ORDERED: methylPREDNISolone 125 MG/2 ML VIAL IV STA (23:21)
[2024-09-11 23:30] LABS: Magnesium 1.6 mg/dl (1.7-2.4)
--- NOTE | 2024-09-11 23:35 | History & Physical Report ---
Date of Service September 11, 2024 Assessment & Plan (1) Multiple sclerosis exacerbation: (2) Hypokalemia: (3) Hypomagnesemia: (4) Anxiety: (5) Diabetes mellitus, type 2: (6) Hypertension: Plan Patient is a 49 y/o female with a PMHx of MS, migraines, T2DM, depression, HTN. She has never required inpatient management for MS flares. This flare began around and she saw her neurologist at [facility] in [place] who prescribed a Medrol Dosepak that she just finished on 09/01. She is being admitted today for an MS flare and IV steroids. #MS exacerbation flareup started around , patient finished Medrol Dosepak 09/01 Follows with neurologist in [place] at [facility] Patient with visual changes, [id number] in eye, numbness and tingling, headache MRI showing no acute changes, T2/FLAIR signal hyperintensity scattered throughout subcortical white matter suggestive of demyelinating disease such as MS, recommend repeat MRI in 3-6 months ED: 10 Mg IV Decadron and 1L NSS Will start patient on 1G IV Solu-Medrol daily x 3 days Continue Aubagio - may need held in acute exacerbation - defer consult neurology at this time - daytime team - please reach out to Dr. Sumeet Dahl at [facility] regarding continuing Aubagio #hypokalemia/ hypomagnesemia possibly 2/2 to diuretic use K+ 3.1 in ED -> 40 MeQ PO in ED will order additional 40 MeQ PO on admission Mg 1.6 -> 1 G IV ordered trend BMP and Mg #anxiety required 1 Mg IV Ativan in ED if anxiety returns could order 0.5mg PO Ativan prn during hospitalization - defer at this time as stable #T2DM controlled on Ozempic, metformin, glipizide at home; held No A1c on file; will add to a.m. labs SSI ordered with high dose steroids may need adjusted if persistently hyperglycemic - CF 20, CR 8 #HTN continue home losartan Hold home hydrochlorothiazide with acute infection and hypokalemia Chronic stable diagnoses: depression - continue fluoxetine and nortriptyline GERD - continue PPI HLD - continue statin VTE ppx: SCDs - low risk Diet: T2DM Dispo: Med surg Admission and Anticipated Discharge Date Admission Date: 1/18/25 History of Present Illness Chief Complaint: illness Primary Care Provider: Sumeet Daniels MD Patient is a 49 y/o female with a PMHx of MS, migraines, T2DM, depression, HTN. She has never required inpatient management for MS flares. This flare began around and she saw her neurologist at [facility] in [place] who prescribed a Medrol Dosepak that she just finished on 09/01. She is being admitted today for an MS flare and IV steroids. Patient seen at bedside with her present. She stated that she had an MS flareup over and had a Medrol Dosepak which she finished 09/01. Roughly 2 to 3 days ago she began with symptoms again. She has chronic numbness and tingling but it is acutely worsened mostly on the left side. She also has chronic double vision but now has a new symptom of blurry vision. She also has pain on her left eye when she moves it. She also has a mild headache that is still present. She also endorses lightheadedness that can occur at rest or on exertion. She follows with neurologist Dr. Sumeet Dahl, with [facility]. She lives here but works at [facility] so follows with neurologist there. Patient denies fever, chills, dyspnea, chest pain, abdominal pain, nausea, vomiting, diarrhea. She took all of her home medications this morning but is due for her evening medications. She takes vitamin D daily for MS, will continue. She does not use nicotine products or drink alcohol. She denies past history of cancer or previous VTE. She does not use oxygen at baseline. She wishes to be full code at this time. She did have a hysterectomy in February. She also had gastric sleeve surgery in 2010. Allergies Allergy/AdvReac Type Severity Reaction Status Date / Time glatiramer (copolymer 1) Allergy Severe skin Verified 03/24/24 12:00 [From Copaxone] breakdown adhesive tape Allergy Intermediate Rash Verified 03/24/24 12:00 Home Medications Medication Instructions Recorded Confirmed Type atorvastatin 40 mg tablet 40 mg PO HS 12/11/18 09/12/24 History fluoxetine 40 mg capsule 40 mg PO QAM 12/11/18 09/12/24 History losartan 25 mg tablet 25 mg PO QAM 12/11/18 09/12/24 History omeprazole 20 mg capsule,delayed 20 mg PO QAM 12/11/18 09/12/24 History release cholecalciferol (vitamin D3) 50 5,000 units PO DAILY 07/02/19 09/12/24 History mcg (2,000 unit) tablet ferrous sulfate 325 mg (65 mg 325 mg PO Q OTHER DAY 07/23/21 09/12/24 History iron) tablet metformin 500 mg tablet 500 mg PO BID 07/23/21 09/12/24 History teriflunomide 14 mg tablet 14 mg PO QAM 07/23/21 09/12/24 History (Aubagio) ondansetron HCl 4 mg tablet 4 mg PO UD PRN Nausea 07/26/22 09/12/24 History baclofen 20 mg tablet 20 mg PO BID 12/29/23 09/12/24 History cetirizine 10 mg capsule (Zyrtec) 10 mg PO QAM 12/29/23 09/12/24 History gabapentin 100 mg capsule 100 mg PO BID 12/29/23 09/12/24 History glipizide 5 mg tablet 5 mg PO QAM 12/29/23 09/12/24 History hydrochlorothiazide 25 mg tablet 25 mg PO QAM 12/29/23 09/12/24 History multivitamin with iron 1 tab PO DAILY 12/29/23 09/12/24 History nortriptyline 25 mg capsule 25 mg PO HS 12/29/23 09/12/24 History semaglutide 1 mg/dose (4 mg/3 mL) 1 mg subcut WK 12/29/23 09/12/24 History subcutaneous pen injector (Ozempic) docusate sodium 100 mg capsule 100 mg PO DAILY 01/16/24 09/12/24 History (Colace) Past Med/Surg History Problem List (Updated 09/11/24 @ 23:34 by Lisha Tejada PA-C) Hypomagnesemia Anxiety Hypertension controlled, stable per pt Diabetes mellitus, type 2 NIDDM Hypokalemia Multiple sclerosis exacerbation Multiple sclerosis (Acute) Dysuria Family history of breast cancer in first degree relative mother, age 55 Medical History Bifascicular block ongoing since 2020 History of anesthesia reaction woke during a cysto once, put back under quickly, but for next procedure was given too much anesthesia, and was quite slow to wake Recurrent UTI none at present GERD (gastroesophageal reflux disease) controlled, stable per pt 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 Hyperlipidemia History of COVID-19 (2021) Sleep apnea hx of as child > no cpap for several yrs, also lost weight Diabetes mellitus, type 2 NIDDM Migraine Botox injections [id number] > next dose 01/12/24 Depression Multiple sclerosis Hypertension controlled, stable per pt Dizziness found to be related to MS Surgical History History of colonoscopy History of breast biopsy benign-right History of cystoscopy Hx of surgical procedure tongue reduction for sleep apnea S/P laparoscopic sleeve gastrectomy S/P wisdom tooth extraction H/O tubal ligation S/P tonsillectomy Renal lithiasis hx of > cysto S/P endometrial ablation S/P cholecystectomy S/P section x2 Family History Mother Breast cancer, Onset Age: 55 Gestational diabetes Hypertension Dyslipidemia Father Gestational diabetes Hypertension Dyslipidemia Denies family history of Ovarian cancer Colorectal cancer Uterine cancer Social History Smoking Status: Unknown if ever smoked Second Hand Exposure: No; Do You Dip or Chew Tobacco: No; Tobacco Cessation Education Requested by Patient: No Hx Alcohol Use: No Hx Substance Use: No Preferred Language: Pashto Communication Ability: Effective Can Line Operator Required: No Beliefs That Will Affect Care: None Current Living Situation: Spouse Other Information That Helps Us Care for You: No Feels Safe at Home: Yes Safety Concerns: Feels Safe At This Time Assistive Devices: None Review of Systems Review of Systems: see HPI Physical Exam Physical Exam: The patient is awake, alert and oriented 3, well developed and well nourished, normocephalic and atraumatic, in no acute distress. Non-toxic appearing. HEENT- EOMI, mucous membranes moist. Hearing grossly intact. Heart-normal S1 and S2. No murmurs, rubs or gallops. Lungs-clear bilaterally, no respiratory distress, no accessory muscle use. Abdomen-normal bowel sounds and soft. No ascites noted. Non-tender. Extremities- no clubbing, cyanosis, or edema. Rheumatologic-normal range of motion. Psychiatric-normal affect. Musculoskeletal: no cyanosis or clubbing, extremities motor strength 5/5 Neurologic: PERRL, EOMI, accommodation nl, no face palsy, no dysarthria CN's II-XI intact bilaterally; no focal motor deficits Speech / Cognition: normal speech Motor/Sensory: no sensory deficit Results & Data Results & Data Vital Signs (Past 12 Hours) Vital Signs Temp Pulse Resp BP Pulse Ox O2 Del Method 09/11/24 21:30 94 H 12 146/98 H 99 09/11/24 21:03 86 15 140/98 98 09/11/24 20:42 94 H 24 142/98 H 09/11/24 20:31 91 H 09/11/24 20:09 36.3 C L 93 H 16 153/88 H 97 Room Air Laboratory Results reviewed CBC, pt/inr, cmp Diagnostic Findings reviewed brain MRI Medications Administered ED: 10 Mg Decadron, 1L NSS, 1mg ativan, 40 meq PO ECG Additional Comments: ordered Code Status & VTE Plan Code Status full VTE Prophylaxis Plan VTE Prophylaxis will be ordered: Yes Supervising Physician Co-Signing Physician Notes Attending addendum: I have physically seen this patient, have supervised the NUNU's activities, and agree with the H&P unless as otherwise noted. Assessment and Plan: The patient is a 49-year-old female with a past med history including multiple sclerosis, migraines, diabetes mellitus type 2, depression, hypertension. She follows with [facility] neurology Dr. Sumeet Dahl for multiple sclerosis. She has not required inpatient care in the past. However, she noted a flare around , and was given a Medrol Dosepak that she just finished on 09/01. Symptoms had temporarily improved, ever, she noticed about 2 to 3 days ago symptoms began to recur, and notes chronic numbness and tingling is worsened primarily in the left side. She does have chronic double vision but reports now with her new symptoms that are blurrier vision. She also has pain in her left eye when she moves it, and develops a mild headache that is still present. She has noted lightheadedness that can occur with rest or exertion. #Multiple sclerosis exacerbation- Patient had a mini flare from , that improved somewhat with Medrol Dosepak that was completed on 09/01. She is following with Dr. Sumeet Dahl at [facility] neurology services, who will need to be consulted tomorrow during daytime hours MRI brain performed in the emergency department showed no acute changes, but did show T2/FLAIR signal hyperintensity scattered throughout subcortical white matter suggestive of demyelinating disease such as MS with recommendation for repeat MRI in 3 to 6 months Patient had been given Decadron 10 mg IV from the ED, and 1 L normal saline Will patient will be started on standard protocol of Solu-Medrol 1 g IV daily for 3 to 5 days in the a.m. Will have her continue Aubagio, and as noted will have daytime service contact her neurologist Dr. Sumeet Dahl or covering physician and neurology at [facility] tomorrow #Electrolyte disturbances- Potassium 3.1, to be replaced with 40 mill equivalents orally and recheck laboratories in the a.m. Magnesium added and levels 1.6, which will be placed with 1 g IV and recheck both laboratories in the a.m. #Chronic medical conditions Anxiety-Patient was given lorazepam 1 mg IV in the ED, with improvement symptoms, and will have 0.5 mg p.o. every 6 hours as needed anxiety as needed during hospitalization Diabetes mellitus-For now hold Ozempic, metformin and glipizide. Check hemoglobin A1c. Place Accu-Cheks with NovoLog SSI as noted Hypertension-Continue losartan..Hold HCTZ due to hypokalemia Depression-Continue fluoxetine and nortriptyline Hyperlipidemia-continue atorvastatin GERD-continue omeprazole/pantoprazole PG Care Time/CCT Total # of Minutes Spent Total Time Spent with Patient: Total time spent is greater than 50% in coordination of care (as documented) at patient's floor/unit and/or counseling patient: Coding Level of Care Code 89669 INT INP/OBS CARE 3/75MIN Diagnoses Multiple sclerosis exacerbation G35 Hypokalemia E87.6 Hypomagnesemia E83.42 Anxiety F41.9 Diabetes mellitus, type 2 E11.9 Hypertension I10
[2024-09-12] MEDS: MAGNESIUM SULFATE / D5W 1 GM/100 ML BAG IV ONE (00:22)
[2024-09-12] MEDS: methylPREDNISolone 1,000 MG in NSS 250 ML IV STA (00:53)
[2024-09-12] MEDS: POTASSIUM CHLORIDE CRTAB 20 MEQ TABCR PO STA (01:51)
[2024-09-12] MEDS ORDERED: CARBOHYDRATES FOR HYPOGLYCEMIA PO PRN (02:26)
[2024-09-12] MEDS ORDERED: GLUCOSE 40% GEL 15 GM TUBE PO PRN (02:26)
[2024-09-12] MEDS ORDERED: MELATONIN 3 MG TAB PO PRN (02:26)
[2024-09-12] MEDS ORDERED: GLUCOSE 10 TAB/TUBE PO PRN (02:26)
[2024-09-12] MEDS ORDERED: ONDANSETRON INJ 2 MG/ML 2 ML VIAL IV PRN (02:26)
[2024-09-12] MEDS ORDERED: DEXTROSE 50% 50 ML SYRINGE IV PRN (02:26)
[2024-09-12] MEDS ORDERED: GLUCAGON FOR INJ 1 MG VIAL SQ PRN (02:26)
[2024-09-12] MEDS ORDERED: DOCUSATE SODIUM 100 MG CAP PO PRN (02:26)
[2024-09-12 04:52] LABS: Hematocrit (blood only) 37.5 % (37.0-47.0); Hemoglobin 12.4 g/dl (12.0-16.0); Mean Corpuscular Hemoglobin 26.6 pg (25.0-34.0); Mean Corpuscular Hgb Conc 33.1 g/dL (32.0-36.0); Mean Corpuscular Volume 80.5 fL (80.0-100.0); Mean Platelet Volume 9.3 fL (9.4-12.4); Platelet Count 275 K/uL (130-400); RDW Coefficient of Variation 14.7 % (11.5-14.5); RDW Standard Deviation 42.6 fL (36.4-46.3); Red Blood Count 4.66 M/uL (4.20-5.40); White Blood Count 5.53 K/ul (4.8-10.8)
[2024-09-12] MEDS: BACLOFEN 20 MG TAB PO SCH (05:02)
[2024-09-12] MEDS: GABAPENTIN 100 MG CAP PO SCH (05:02)
[2024-09-12] MEDS: NORTRIPTYLINE HCL 25 MG CAP PO SCH (05:06)
[2024-09-12] MEDS: ATORVASTATIN 40 MG TAB PO SCH (05:06)
[2024-09-12 05:08] LABS: BUN Creatinine Ratio 15.5 (10-20); Calcium 8.6 mg/dl (8.6-10.3); Creatinine Clr Calc Pharmacy 133.7 ml/min; Magnesium 1.7 mg/dl (1.7-2.4); Potassium 4.1 mmol/L (3.5-5.1)
--- NOTE | 2024-09-12 07:25 | Electrocardiogram Report ---
Test Reason : Blood Pressure : */* mmHG Vent. Rate : 92 BPM Atrial Rate : 92 BPM P-R Int : 140 ms QRS Dur : 136 ms QT Int : 400 ms P-R-T Axes : 13 -66 1 degrees QTcB Int : 494 ms Normal sinus rhythm Right bundle branch block Left anterior fascicular block Bifascicular block Abnormal ECG When compared with ECG of 29-Jan-2024 15:28, Inverted T waves have replaced nonspecific T wave abnormality in Inferior leads Confirmed by Sumeet Sosa ([id number]) on 09/12/2024 7:25:11 AM Referred By: REFERRED SELF Confirmed By: Sumeet Sosa
[2024-09-12] MEDS: LOSARTAN POTASSIUM 25 MG TAB PO SCH (08:35)
[2024-09-12] MEDS: PANTOprazole 40 MG TAB PO SCH (08:35)
[2024-09-12] MEDS: FLUoxetine HCL 20 MG CAP PO SCH (08:35)
[2024-09-12] MEDS: CHOLECALCIFEROL 125 MCG (5,000 UNITS) TAB PO SCH (08:35)
[2024-09-12] MEDS: FERROUS SULFATE 325 MG TAB PO SCH (08:36)
[2024-09-12 08:48] LABS: Estimated Average Glucose 166 mg/dl; Hemoglobin A1C 7.4 % (4.5-5.6)
[2024-09-12] MEDS ORDERED: methylPREDNISolone 10 mg/mL (For Ped Dose < 7mg) IV SCH (09:00)
[2024-09-12] MEDS: INSULIN ASPART PER UNIT CHARGE SC SCH (09:24)
[2024-09-12] MEDS: methylPREDNISolone 1,000 MG in NSS 250 ML IV SCH (09:56)
[2024-09-12] MEDS: TERIFLUNOMIDE 14 MG TAB PO SCH (14:15)
--- NOTE | 2024-09-12 14:46 | Hospitalist Progress Note ---
Date of Service September 12, 2024 Assessment & Plan (1) Multiple sclerosis exacerbation: (2) Hypokalemia: (3) Hypomagnesemia: (4) Anxiety: (5) Diabetes mellitus, type 2: (6) Hypertension: Plan Patient is a 49 y/o female with a PMHx of MS, migraines, T2DM, depression, HTN. She has never required inpatient management for MS flares. This flare began around and she saw her neurologist at [facility] in [place] who prescribed a Medrol Dosepak that she just finished on 09/01. She is being admitted today for an MS flare and IV steroids. #MS exacerbation flareup started around , patient finished Medrol Dosepak 09/01 Follows with neurologist in [place] at [facility] Patient with visual changes, [id number] in eye, numbness and tingling, headache MRI showing no acute changes, T2/FLAIR signal hyperintensity scattered throughout subcortical white matter suggestive of demyelinating disease such as MS, recommend repeat MRI in 3-6 months ED: 10 Mg IV Decadron and 1L NSS Patient on 1G IV Solu-Medrol daily x 3 days Continue Aubagio - Reached out to Dr. Sumeet Tanner and was connected with neurology resident at [facility] who confirms continuing DMARD #hypokalemia/ hypomagnesemia possibly 2/2 to diuretic use K+ 3.1 in ED -> 40 MeQ PO 2 doses in ED; improved to 4.1 Mg 1.6 -> 1 G IV ordered trend BMP and Mg #anxiety required 1 Mg IV Ativan in ED if anxiety returns could order 0.5mg PO Ativan prn during hospitalization - defer at this time as stable #T2DM controlled on Ozempic, metformin, glipizide at home; held No A1c on file; will add to a.m. labs SSI ordered with high dose steroids may need adjusted if persistently hyperglycemic - CF 20, CR 8 #HTN continue home losartan Hold home hydrochlorothiazide with acute infection and hypokalemia Chronic stable diagnoses: depression - continue fluoxetine and nortriptyline GERD - continue PPI HLD - continue statin VTE ppx: SCDs - low risk Diet: T2DM Dispo: Med surg Admission and Anticipated Discharge Date Admission Date: September 12, 2024 Supervising Physician Co-Signing Physician Notes I personally examined the patient and verified all torres points of history and exam, discussed case, and agree with decision making with Dr Kearney feeling better, vision is improving. Hand paresthesias have resolved to her baseline. No dysuria/frequency/urgencyand she denies any chronic bladder issues/neurogenic bladder as it relates to her MS. Vitals noted, in general she is awake and alert pleasant no distress. HEENT normocephalic atraumatic mucous membranes moist. Breathing unlabored no accessory muscle use good effort. Skin without rashes pallor or icterus. Labs and diagnostics noted. MS flareday 2 out of 3 of the 1000 mg of Solu-Medrol. Extensive discussion on taking a mind-body approach to chronic illnessinterestingly she had just moved to [place], currently her and sons still live in [place] as they are waiting for him to finish out the school year, and between a new job and a split life she has a ton of stresswe discussed that that easily could be part of "why now" on the MS flare and use that as a bridge to discuss stress management tools. Also discussed diet changes that could potentially be beneficial, as well as overall self-care. Also tried to give a little bit of a explanation of what probably will be next steps of escalating her MS regimenalthough obviously deferring that to her primary neurologist. She expressed a good understanding of all of the above. After tomorrow's 1000 mg dose of Solu-Medrol, hopefully home. Discussed that by convention we usually send people home on a Medrol Dosepak afterwards, noting that she had just been on 1. She notes it will be fairly easy for her to follow-up with her neurologist. otherwise as above Subjective Yolanda Peraza is resting comfortably in a chair at bedside when seen in the ED this morning. Patient endorses that her symptoms involving her MS flare have been improving since yesterday. Patient endorses feeling pins and needles in eyes and blurry vision yesterday that has now resolved. Patient does endorse double vision, but this is a chronic finding and she wears corrected bifocals for this. Patient does endorse continuing neuropathy of hands and feet and headache. She reports that typically every 3 months she gets botox injections for her persistent migraines and notes that oral medication have not helped in the past. Physical Exam Physical Exam: General: patient resting comfortably, NAD, non-toxic in appearance, answers questions appropriately. Skin: warm, dry, intact HEENT: NC/AT, anicteric sclera, conjunctiva without injection, moist mucus membranes. Heart: +S1/S2, regular, no m/r/g Lungs: equal air entry bilaterally, no rales/rhonchi/wheezes Abd: +BS, soft, NT/ND Ext: warm, no clubbing/cyanosis or edema Neuro: nonfocal, speech intact, no facial droop, moving all extremities. Results & Data Results & Data Vital Signs (Past 12 Hours) Vital Signs Temp Pulse Pulse Resp BP Pulse Ox O2 Del Method 09/12/24 14:05 36.9 C 102 H 16 116/76 98 Room Air 09/12/24 09:00 119 H 17 130/94 98 Room Air 09/12/24 07:04 102 H 09/12/24 04:03 90 20 129/87 97 Room Air Resident Activity Tracking Resident Involvement: Resident Care Provided Care Provided: Adult Hospital Medicine
--- NOTE | 2024-09-12 16:40 | Billing Data ---
Date of Service September 12, 2024 Coding Level of Care Code 82144 SUB INP/OBS CARE MIN
[2024-09-13 07:15] VITALS: BP 113/78; RESP 16; TEMP 98.4; O2SAT 96
[2024-09-13 07:49] LABS: Hematocrit (blood only) 33.7 % (37.0-47.0); Hemoglobin 11.2 g/dl (12.0-16.0); Mean Corpuscular Hemoglobin 26.7 pg (25.0-34.0); Mean Corpuscular Hgb Conc 33.2 g/dL (32.0-36.0); Mean Corpuscular Volume 80.2 fL (80.0-100.0); Mean Platelet Volume 9.6 fL (9.4-12.4); Platelet Count 288 K/uL (130-400); RDW Coefficient of Variation 15.3 % (11.5-14.5); White Blood Count 15.35 K/ul (4.8-10.8)
--- NOTE | 2024-09-13 07:55 | Discharge Summary ---
Date of Service September 13, 2024 Admission HPI Per Admitting Provider Patient is a 49 y/o female with a PMHx of MS, migraines, T2DM, depression, HTN. She has never required inpatient management for MS flares. This flare began around and she saw her neurologist at [facility] in [place] who prescribed a Medrol Dosepak that she just finished on 09/01. She is being admitted today for an MS flare and IV steroids. Patient seen at bedside with her present. She stated that she had an MS flareup over and had a Medrol Dosepak which she finished 09/01. Roughly 2 to 3 days ago she began with symptoms again. She has chronic numbness and tingling but it is acutely worsened mostly on the left side. She also has chronic double vision but now has a new symptom of blurry vision. She also has pain on her left eye when she moves it. She also has a mild headache that is still present. She also endorses lightheadedness that can occur at rest or on exertion. She follows with neurologist Dr. Sumeet Dahl, with [facility]. She lives here but works at [facility] so follows with neurologist there. Patient denies fever, chills, dyspnea, chest pain, abdominal pain, nausea, vomiting, diarrhea. She took all of her home medications this morning but is due for her evening medications. She takes vitamin D daily for MS, will continue. She does not use nicotine products or drink alcohol. She denies past history of cancer or previous VTE. She does not use oxygen at baseline. She wishes to be full code at this time. She did have a hysterectomy in February. She also had gastric sleeve surgery in 2010. Admission Exam Per Admitting Provider The patient is awake, alert and oriented 3, well developed and well nourished, normocephalic and atraumatic, in no acute distress. Non-toxic appearing. HEENT- EOMI, mucous membranes moist. Hearing grossly intact. Heart-normal S1 and S2. No murmurs, rubs or gallops. Lungs-clear bilaterally, no respiratory distress, no accessory muscle use. Abdomen-normal bowel sounds and soft. No ascites noted. Non-tender. Extremities- no clubbing, cyanosis, or edema. Rheumatologic-normal range of motion. Psychiatric-normal affect. Principal Diagnosis MS flare up Discharge Exam Gen: NAD, WD/WN HEENT: NCAT, PERRL, EOMI, MMM CV: RRR, no m/r/g appreciated Resp: CTAB, symmetrical chest rise, breathing non-labored Abd: Soft, NT/ND, BS normoactive MSK: Full ROM, normal str, no gross deformities Skin: Warm, dry, pink, no rashes noted Neuro: AOx3, CN III-XII intact, sensation intact throughout, str 5/5 Psych: Mood-affect congruent. Speech pace and content normal. Discharge Data Allergies Allergy/AdvReac Type Severity Reaction Status Date / Time glatiramer (copolymer 1) Allergy Severe skin Verified 03/24/24 12:00 [From Copaxone] breakdown adhesive tape Allergy Intermediate Rash Verified 03/24/24 12:00 Consultations 09/11/24 22:52 ED Decision to Admit Stat Ordered Studies 09/11/24 20:27 MR brain wo/w con Stat 09/13/24 07:06 09/13/24 07:06 Hospital Course (1) Multiple sclerosis exacerbation: (2) Hypokalemia: (3) Hypomagnesemia: (4) Anxiety: (5) Diabetes mellitus, type 2: (6) Hypertension: Plan Patient is a 49 y/o female with a PMHx of MS, migraines, T2DM, depression, HTN. She has never required inpatient management for MS flares. This flare began around [place] and she saw her neurologist at [facility] in [place] who prescribed a Medrol Dosepak that she finished on 09/01. She presented with headache, blurry vision, and paresthesias and was admitted for an MS flare and IV steroids. MS exacerbation - Initial flareup started around [place], sees neurologist at [facility]; finished Medrol Dosepak on 09/01 - Presented with visual changes, [id number] in eye, numbness and tingling, headache - Brain MRI 09/11: no acute changes; T2/FLAIR signal hyperintensity scattered throughout subcortical white matter, c/w demyelinating disease; recommend repeat MRI in 3-6 months - In the ED, patient was given 10mg IV Decadron and 1L NSS - While hospitalized, patient received 1G IV Solu-Medrol daily x 3 days - Dr. Sumeet Tanner at [facility] was contacted, advised continuing DMARD - kept on home Aubagio 14mg qAM - Sx resolved & neuro exam normal at time of discharge - Discharged with Medrol Dosepak Hypokalemia/ hypomagnesemia - Suspect 2/2 to diuretic use - K+ 3.1 in ED --> given 2 x 40 meq KCl PO --> improved to 4.1, stable at discharge - Mg 1.6 in ED --> given 1 x 1g IV Mag sulf --> improved to 1.7; 1.9 at discharge Anxiety - Required 1 Mg IV Ativan in ED - Home medication was continued T2DM - Managed with Ozempic, metformin, glipizide at home - A1c 7.4; no previous result for comparison - Managed with SSI during hospitalization - Correction Factor 20, Carb ratio 8 HTN - Home losartan was continued - Home hydrochlorothiazide was held Depression - fluoxetine and nortriptyline were continued GERD - continued PPI HLD - continued statin Total Time Total Time Spent Total Time Spent (In Minutes): See attending documentation Discharge Plan Discharge Items Patient Disposition: Home - Self-Care Reason For Visit: MS FLARE UP Discharge Diagnosis: MS flare Activity: Per Instructions section Non-emergency contact: Primary Care Provider and Neurologist Call non-emergency contact if: you have any medication questions and your symptoms worsen Follow-up/Referrals: Sumeet Daniels MD [Primary Care Provider] - (SPOKE TO PATIENT, SHE WILL MAKE HER OWN HOSPITAL FOLLOW UP WITH HER PCP.) Diet: Regular Addtl Attending Provider Instructions: You were admitted to the hospital for an MS flare with blurry vision, numbness, and tingling. You were treated with IV steroids and deemed safe for discharge when your symptoms resolved and you were neurologically back at baseline. Please bring a copy of this discharge summary with you to your next office appointment so that your provider can review it at that time and stay updated on your hospitalization and potential changes in your care. Your medication list has been reviewed and reconciled, and an updated list is included with your hospital discharge paperwork. Please review this list closely, and make note of any changes. We sent a Medrol Dosepak to the [facility] pharmacy on [address]. Follow the packaging instructions; take 24mg the first day and then one less tablet each day until you run out. No changes were made to your diabetes medications. Continue your home meds as usual Take your medications as instructed; do not skip a dose. Make sure all of your doctors know every medicine you are taking (including eile-kam-zopcfap medicines, vitamins, and supplements). Call your PCP before taking any new medicines because some of these may interact with your current medications, or may make your symptoms worse. Follow-up appointments: Make a follow-up appointment with your Neurologist within the next week. It is very important that you follow up with them shortly after discharge from the hospital. Keep all your follow-up appointments as already scheduled. If you cannot make an appointment, notify your provider. Contact your PCP if your visual disturbances, numbness/tingling, or other symptoms return. Call 911 or go to the ER if you experience any of the following: Sudden, severe headache unrelieved by your usual medications Sudden, severe abdominal pain or nausea/vomiting Severe chest pain, or chest pain that radiates (moves) to your jaw or arm Sudden, severe shortness of breath or difficulty breathing Thank you for allowing us to participate in your care. Pending Studies at Discharge: No Stand-Alone Forms: My [facility] [employer], Work/School Release, Smoking Cessation Medications and DC Order Prescriptions: New methylprednisolone [Medrol (Edgar)] 4 mg tablets,dose pack 4 mg PO DAILY Qty: 21 0RF Continued cholecalciferol (vitamin D3) 2,000 unit tablet 5,000 units PO DAILY ondansetron HCl 4 mg tablet 4 mg PO UD PRN (Reason: Nausea) fluoxetine 40 mg capsule 40 mg PO QAM atorvastatin 40 mg tablet 40 mg PO HS losartan 25 mg tablet 25 mg PO QAM omeprazole 20 mg capsule,delayed release(DR/EC) 20 mg PO QAM metformin 500 mg tablet 500 mg PO BID ferrous sulfate 325 mg (65 mg iron) Tablet 325 mg PO Q OTHER DAY teriflunomide [Aubagio] 14 mg tablet 14 mg PO QAM baclofen 20 mg Tablet 20 mg PO BID nortriptyline 25 mg Capsule 25 mg PO HS hydrochlorothiazide 25 mg Tablet 25 mg PO QAM gabapentin 100 mg Capsule 100 mg PO BID glipizide 5 mg Tablet 5 mg PO QAM multivitamin with iron Tablet 1 tab PO DAILY Zyrtec 10 mg Capsule 10 mg PO QAM Ozempic 1 mg/dose (4 mg/3 mL) Pen Injector 1 mg SUBCUT WK Patient Comments: > last dose january 07 docusate sodium [Colace] 100 mg Capsule 100 mg PO DAILY Discharge Orders: Discharge Order (Routine); Ordered 09/13/24 Ordered By: Tong Hudson/Other Patient Handouts: Managing Type 2 Diabetes, How to Check Your Blood Sugar Admission Data Admit Date/Time: 09/12/24 02:05 Attending Provider: Sumeet Daniels Admit Provider: Alin Dillard Primary Care Provider: Sumeet Daniels Other Providers: Alin Dillard Other Interventions: Discharge Summary Assessment (RN) Last Done: 09/13/24 10:18 Supervising Physician Co-Signing Physician Notes Attending attestation Pt seen and examined in concert with Dr. Tyler. In agreement with the documented findings as noted in the resident documentation with any exceptions or additions as noted here. Resting comfortably in bed with return to baseline. VS as noted. On examination, S1/S2 nl RRR no MCG. CTAB. Abd NT/ND BS+ve. CNII- XII grossly intact. Multiple sclerosis with acute exacerbation - s/p IV steroid therapy and will transition to Medrol dosepak to complete course. Follow up with Dr. Tanner at [facility]. Continue present DMARD DMII - restart outpatient glycemic control regimen, counseling provided re: restarting GLP-1 injections and symptom control as nausea with injections intermittently. Else see resident documentation as noted. Total attending physician time spent with this patient's care on the day of discharge: 35 min Resident Activity Tracking Resident Involvement: Resident Care Provided Care Provided: Adult Hospital Medicine
[2024-09-13 08:08] LABS: BUN Creatinine Ratio 26.9 (10-20); Calcium 9.2 mg/dl (8.6-10.3); Creatinine Clr Calc Pharmacy 149.2 ml/min; Magnesium 1.9 mg/dl (1.7-2.4); Potassium 4.1 mmol/L (3.5-5.1)
[2024-09-13] MEDS: ACETAMINOPHEN 325 MG TAB PO PRN (09:37)
[2024-09-13 10:19] VITALS: PULSE 102
== END 2024-09-13 14:20 | disposition home or self-care (01) | DRG 60 ==
LOC: ED 20:06 → SUATTDRO 09-12 02:05 → EDINP 09-12 02:05 → 3W 09-12 13:46
DX: Z86.69 Personal history of other diseases of the nervous system and sense organs; Z90.710 Acquired absence of both cervix and uterus; I10 Essential (primary) hypertension; K21.9 Gastro-esophageal reflux disease without esophagitis; F41.9 Anxiety disorder, unspecified; E87.6 Hypokalemia; Z79.85 Long-term (current) use of injectable non-insulin antidiabetic drugs; F32.A Depression, unspecified; E78.5 Hyperlipidemia, unspecified; E11.9 Type 2 diabetes mellitus without complications; G35 Multiple sclerosis; T50.2X5A Adverse effect of carbonic-anhydrase inhibitors, benzothiadiazides and other diuretics, initial encounter; Z88.8 Allergy status to other drugs, medicaments and biological substances; Z79.84 Long term (current) use of oral hypoglycemic drugs; Z63.5 Disruption of family by separation and divorce; E83.42 Hypomagnesemia; Z79.899 Other long term (current) drug therapy; H53.2 Diplopia